=== PATIENT | male | born 1930 | race Caucasian/White ===

== ENCOUNTER 2018-05-08 10:01 | Emergency (ER) | payer MEDICARE, BC ==
[2018-05-08 10:43] VITALS: BP 175/78
--- NOTE | 2018-05-08 12:19 | EDM.PDOC ---
ED HPI GENERAL MEDICAL PROBLEM - General Chief Complaint: Upper Extremity Injury/Pain Stated Complaint: ELBOW PAIN Time Seen by Provider: 05/08/18 11:00 Source of Information: Reports: Patient History Limitations: Reports: No Limitations - History of Present Illness INITIAL COMMENTS - FREE TEXT/NARRATIVE: 88-year-old male arrives with a variety complaints, his main concern however is his right elbow. A year ago he had swelling and pain, responded to intra- articular steroids and did well until several weeks ago when he started having pain and swelling. It is now become tight and painful with movement and he wanted it checked. He's also had diarrhea off and on for the last year, and worsening bronchitis with the past 2 weeks. He thinks he's had low-grade fevers off-and-on, no significant shortness of breath, no nausea or vomiting. Associated Symptoms: Reports: Cough, Fever/Chills, Shortness of Breath. Denies : Chest Pain, Loss of Appetite, Malaise, Nausea/Vomiting, Weakness Right Arm Pain Score (Numeric/FACES): 10 - Related Data Allergies Allergy/AdvReac Type Severity Reaction Status Date / Time bee pollen Allergy Other Verified 07/09/16 08:00 pollen extracts Allergy Other Verified 07/09/16 08:00 Home Meds: Home Meds Omeprazole [Prilosec] 20 mg PO DAILY 06/01/13 [History] Warfarin [Coumadin] 5 mg PO ASDIRECTED 04/07/16 [History] EPINEPHrine [Epipen 2-Ceferino] 0.3 ml IM ASDIRECTED 07/07/16 [History] Fish Oil/Borage/Flax/Om3,6,9#1 [[place] 3-6-9 1,200 mg Softgel] 2,400 mg PO BID [History] Multivitamin [Multivitamins] 1 cap PO DAILY 07/07/16 [History] Triamcinolone Acetonide [Triamcinolone Acetonide 0.5%] 0.5 percent TOP ASDIRECTED 07/07/16 [History] Aspirin 325 mg PO DAILY 05/08/18 [History] Cholestyramine/Aspartame [Questran Light Powder] 05/08/18 [History] Quinapril HCl 20 mg PO BID 05/08/18 [History] Simethicone 125 mg PO Q6H PRN 05/08/18 [History] metFORMIN HCl [Metformin HCl] 1,000 mg PO BID 05/08/18 [History] Past Medical History HEENT History: Reports: Allergic Rhinitis, Hard of Hearing, Other (See Below) Other HEENT History: tinitis right ear Cardiovascular History: Reports: Hypertension Respiratory History: Reports: SOB Gastrointestinal History: Reports: Cholelithiasis, Colon Polyp, GERD Musculoskeletal History: Reports: Fracture, Osteoarthritis Neurological History: Reports: Concussion Endocrine/Metabolic History: Reports: Diabetes, Type II Oncologic (Cancer) History: Reports: Other (See Below) Other Oncologic History: skin cancer Dermatologic History: Reports: None - Infectious Disease History Infectious Disease History: Reports: Chicken Pox, Measles, Mumps - Past Surgical History Cardiovascular Surgical History: Reports: Aneurysm, Other (See Below) Respiratory Surgical History: Reports: None Male Surgical History: Reports: None Neurological Surgical History: Reports: None Musculoskeletal Surgical History: Reports: Knee Replacement Dermatological Surgical History: Reports: Skin Biopsy Social & Family History - Tobacco Use Smoking Status *Q: Never Smoker - Caffeine Use Caffeine Use: Reports: Coffee - Recreational Drug Use Recreational Drug Use: No Review of Systems - Review of Systems Review Of Systems: See Below Constitutional: Reports: Fever Eyes: Reports: No Symptoms Mouth/Throat: Reports: No Symptoms Respiratory: Reports: Shortness of Breath, Cough, Sputum Cardiovascular: Denies: Chest Pain GI/Abdominal: Reports: Diarrhea. Denies: Abdominal Pain Genitourinary: Reports: No Symptoms Musculoskeletal: Reports: Other (Right elbow pain, no other joint symptoms) Skin: Reports: No Symptoms Neurological: Denies: Headache ED EXAM, GENERAL - Physical Exam Exam: See Below Exam Limited By: No Limitations General Appearance: Alert, No Apparent Distress (Looks uncomfortable but not distressed) Eye Exam: Bilateral Eye: Normal Inspection Head: Atraumatic Respiratory/Chest: No Respiratory Distress, Lungs Clear Cardiovascular: Regular Rate, Rhythm GI/Abdominal: Soft, Non-Tender, Abnormal Bowel Sounds (Bowel sounds are hypoactive) Extremities: Other (Exam of the right elbow reveals fullness, effusion, and tenderness especially laterally. No redness or warmth) Skin Exam: Warm, Dry Course - Vital Signs Last Recorded V/S: Last Vital Signs Temp 97.5 F 05/08/18 10:43 Pulse 86 05/08/18 10:43 Resp 16 05/08/18 10:43 BP 175/78 H 05/08/18 10:43 Pulse Ox 97 05/08/18 10:43 - Orders/Labs/Meds Orders: Active Orders 24 hr Category Date Time Status Chest 2V [CR] Stat Exams 05/08/18 11:18 Taken Elbow Min 3V Rt [CR] Stat Exams 05/08/18 11:18 Taken Labs: Laboratory Tests 05/08/18 05/08/18 Range/Units 11:30 11:30 WBC 12.0 H (4.5-11.0) K/uL RBC 4.29 L (4.30-5.90) M/uL Hgb 11.8 L (12.0-15.0) g/dL Hct 36.6 L (40.0-54.0) % MCV 85 (80-98) fL MCH 28 (27-31) pg MCHC 32 (32-36) % Plt Count 298 (150-400) K/uL Neut % (Auto) 78 H (36-66) % Lymph % (Auto) 12 L (24-44) % [place] % (Auto) 10 H (2-6) % Eos % (Auto) 0 L (2-4) % Baso % (Auto) 0 (0-1) % Sodium 136 L (140-148) mmol/L Potassium 3.9 (3.6-5.2) mmol/L Chloride 99 L (100-108) mmol/L Carbon Dioxide 26 (21-32) mmol/L Anion Gap 14.9 H (5.0-14.0) mmol/L BUN 15 (7-18) mg/dL Creatinine 1.1 (0.8-1.3) mg/dL Est Cr Clr Drug Dosing 51.34 mL/min Estimated GFR (MDRD) > 60 (>60) Glucose 167 H (74-106) mg/dL Calcium 8.9 (8.5-10.1) mg/dL Total Bilirubin 0.5 (0.2-1.0) mg/dL AST 17 (15-37) U/L ALT 14 (12-78) U/L Alkaline Phosphatase 66 (46-116) U/L Total Protein 7.9 (6.4-8.2) g/dL Albumin 3.5 (3.4-5.0) g/dL Globulin 4.4 H (2.3-3.5) g/dL Albumin/Globulin Ratio 0.8 L (1.2-2.2) - Re-Assessments/Exams Free Text/Narrative Re-Assessment/Exam: 05/08/18 12:22 a two-view chest x-ray shows no infiltrate, the elbow x-ray shows significant advanced osteoarthritis but appears stable from one year ago. Patient was started on ciprofloxacin 500 mg twice daily for the next 10 days, given a sling for his right arm, and 10 hydrocodone for extra pain control. He was asked to recheck with orthopedics later this week for a possible aspiration of the elbow and or intra-articular steroid injection. Departure - Departure Time of Disposition: 12:36 Disposition: Home, Self-Care 01 Condition: Good Clinical Impression: Effusion of elbow joint, right, Bronchitis Diarrhea Qualifiers: Diarrhea type: unspecified type Qualified Code(s): R19.7 - Diarrhea, unspecified - Discharge Information Instructions: Reactive Arthritis Referrals: Fito Mai ENFORCEMENT MANAGER [Primary Care Provider] - Forms: ED Department Discharge Care Plan Goals: Take antibiotic twice daily, recheck with orthopedics later this week and wear sling for comfort. Use pain medications for extra pain control if needed. - My Orders Last 24 Hours: My Active Orders 05/08/18 11:18 Chest 2V [CR] Stat Elbow Min 3V Rt [CR] Stat - Assessment/Plan Last 24 Hours: My Active Orders 05/08/18 11:18 Chest 2V [CR] Stat Elbow Min 3V Rt [CR] Stat
--- NOTE | 2018-05-09 09:20 | CR ---
CHEST: 2 view CLINICAL HISTORY:Pain COMPARISON:2014 FINDINGS: Patient has had previous sternotomy. Heart size is normal. There are atherosclerotic saxena es in the aorta. No infiltrates are seen. There are no effusions. Impression: Previous sternotomy No acute cardiopulmonary process or significant change from prior study
--- NOTE | 2018-05-09 09:23 | CR ---
Elbow Min 3V Rt CLINICAL HISTORY: Pain and swelling FINDINGS: No acute fracture or dislocation is noted. The fat pads are displaced to the due to joint e ffusion. There are some periarticular ossific densities anteriorly some these may be loose bodies. Th ere is moderate periarticular spurring . There is a persistent stable lytic focus in the olecranon. 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 Impression: Joint fluid is likely joint effusion. Hemarthrosis is felt less likely Moderate osteoarthritic change with periarticular spurring. Probable loose bodies in the anterior syn ovial space Stable cystic focus in the proximal ulna
== END 2018-05-08 12:36 | disposition home or self-care (01) ==
LOC: JP.ED 10:01
DX: M25.421 Effusion, right elbow (principal); J40 Bronchitis, not specified as acute or chronic; I10 Essential (primary) hypertension; E11.9 Type 2 diabetes mellitus without complications; Z79.01 Long term (current) use of anticoagulants; Z79.84 Long term (current) use of oral hypoglycemic drugs; Z79.899 Other long term (current) drug therapy; Z91.030 Bee allergy status; Z91.09 Other allergy status, other than to drugs and biological substances; Z79.82 Long term (current) use of aspirin
CPT/HCPCS: 36415; 71046; 71046-26; 73080-26-RT; 73080-RT; 80053; 85025; 99283; 99284

== ENCOUNTER 2018-12-27 09:56 | Emergency (ER) | payer MEDICARE ==
[2018-12-27 10:23] VITALS: BP 204/91
[2018-12-27] MEDS ORDERED: Acetaminophen/oxyCODONE 325-5 MG Tab PO ONE (10:31)
--- NOTE | 2018-12-27 10:37 | EDM.PDOC ---
ED HPI GENERAL MEDICAL PROBLEM - General Chief Complaint: Upper Extremity Injury/Pain Stated Complaint: LEFT ELBOW PAIN Time Seen by Provider: 12/27/18 10:20 Source of Information: Reports: Patient, Old Records History Limitations: Reports: No Limitations - History of Present Illness INITIAL COMMENTS - FREE TEXT/NARRATIVE: 88 yo male presents with L elbow pain and decreased ROM that began last evening. He denies any injury. He had a similar problem in the past with the R elbow and his primary gave him a shot of "cortisone". He did not take any OTC meds for this and did not attempt to get in with his primary before coming to the ER today. He denies a hx of gout. 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 HELPER: Reports: Other (see below) (none) - Related Data Allergies Allergy/AdvReac Type Severity Reaction Status Date / Time bee pollen Allergy Other Verified 12/27/18 10:22 pollen extracts Allergy Other Verified 12/27/18 10:22 Home Meds: Home Meds Omeprazole [Prilosec] 20 mg PO DAILY 06/01/13 [History] Warfarin [Coumadin] 5 mg PO ASDIRECTED 04/07/16 [History] EPINEPHrine [Epipen 2-Ceferino] 0.3 ml IM ASDIRECTED 07/07/16 [History] Fish Oil/Borage/Flax/Om3,6,9#1 [[place] 3-6-9 1,200 mg Softgel] 2,400 mg PO BID [History] Multivitamin [Multivitamins] 1 cap PO DAILY 07/07/16 [History] Quinapril HCl 20 mg PO BID 05/08/18 [History] Acetaminophen/oxyCODONE [Percocet 325-5 MG] 1 each PO Q4H PRN #20 tab 12/27/18 [ Rx] Insulin Degludec [Tresiba] 36 unit SQ DAILY 12/27/18 [History] Past Medical History HEENT History: Reports: Allergic Rhinitis, Hard of Hearing, Other (See Below) Other HEENT History: tinitis right ear Cardiovascular History: Reports: Hypertension Respiratory History: Reports: SOB Gastrointestinal History: Reports: Cholelithiasis, Colon Polyp, GERD Musculoskeletal History: Reports: Fracture, Osteoarthritis Neurological History: Reports: Concussion Endocrine/Metabolic History: Reports: Diabetes, Type II Oncologic (Cancer) History: Reports: Other (See Below) Other Oncologic History: skin cancer Dermatologic History: Reports: None - Infectious Disease History Infectious Disease History: Reports: Chicken Pox, Measles, Mumps - Past Surgical History Cardiovascular Surgical History: Reports: Aneurysm, Other (See Below) Respiratory Surgical History: Reports: None Male Surgical History: Reports: None Neurological Surgical History: Reports: None Musculoskeletal Surgical History: Reports: Knee Replacement Dermatological Surgical History: Reports: Skin Biopsy Social & Family History - Caffeine Use Caffeine Use: Reports: Coffee Review of Systems - Review of Systems Review Of Systems: See Below Constitutional: Reports: No Symptoms Musculoskeletal: Reports: Joint Pain (L elbow) Skin: Reports: No Symptoms Neurological: Reports: No Symptoms Psychiatric: Reports: No Symptoms ED EXAM, GENERAL - Physical Exam Exam: See Below Exam Limited By: No Limitations General Appearance: Alert, WD/WN, No Apparent Distress Extremities: Pedal Edema (L elbow slightly swollen.), Joint Swelling (L elbow slightly swollen), Limited Range of Motion (ROM decreased to the L elbow. ), Increased Warmth (very subtle increase in warmth noted.). No: Normal Inspection , Normal Range of Motion, Non-Tender, No Pedal Edema, Mottled, Pallor, Redness Neurological: Alert, Oriented, CN II-XII Intact, Normal Cognition, No Motor/ Sensory Deficits Psychiatric: Normal Affect, Normal Mood Skin Exam: Warm, Dry, Intact, Normal Color, No Rash Lymphatic: No Adenopathy Course - Vital Signs Text/Narrative:: Feeling better after Percocet, appt made with orthopedics for 1 week from today. Sling applied. Last Recorded V/S: Last Vital Signs Temp 36.3 C 12/27/18 10:30 Pulse 94 12/27/18 10:30 Resp 16 12/27/18 10:30 BP 204/91 H 12/27/18 10:30 Pulse Ox 97 12/27/18 10:30 - Orders/Labs/Meds Meds: Medications Discontinued Medications Generic Name Dose Route Start Last Admin Trade Name Freq PRN Reason Stop Dose Admin Oxycodone/Acetaminophen 1 tab 05/21/19 10:31 12/27/18 10:46 Percocet 325-5 Mg PO 12/27/18 10:32 1 tab ONETIME ONE Administration Departure - Departure Time of Disposition: 11:15 Disposition: Home, Self-Care 01 Condition: Fair Clinical Impression: Elbow pain, left - Discharge Information *PRESCRIPTION DRUG MONITORING PROGRAM REVIEWED*: No *COPY OF PRESCRIPTION DRUG MONITORING REPORT IN PATIENT ANGELIQUE: No Instructions: Joint Pain, [id number] Referrals: Fito Mai NP [Primary Care Provider] - Forms: ED Department Discharge Additional Instructions: Wear sling for support. Take either acetaminophen OR Percocet as needed for pain relief. Follow up with orthopedics here next Wednesday. Return here or see yourt doctor if getting a lot worse in the interim.
== END 2018-12-27 11:35 | disposition home or self-care (01) ==
LOC: JP.ED 09:56
DX: M25.522 Pain in left elbow (principal); I10 Essential (primary) hypertension; K21.9 Gastro-esophageal reflux disease without esophagitis; E11.9 Type 2 diabetes mellitus without complications; Z79.4 Long term (current) use of insulin; Z79.899 Other long term (current) drug therapy; Z91.030 Bee allergy status; Z88.8 Allergy status to other drugs, medicaments and biological substances
CPT/HCPCS: 99283; A9270

== ENCOUNTER 2019-09-08 16:32 | Emergency (ER) | payer MEDICARE ==
--- NOTE | 2019-09-08 17:03 | EDM.PDOC ---
ED HPI GENERAL MEDICAL PROBLEM - General Chief Complaint: General Stated Complaint: MEDICAL [facility]IA [facility] Time Seen by Provider: 09/08/19 16:40 Source of Information: Reports: Patient, EMS, Family History Limitations: Reports: No Limitations - History of Present Illness INITIAL COMMENTS - FREE TEXT/NARRATIVE: 89-year-old male was brought in by ambulance after falling at home and was unable to get up. He has been getting episodes of dizziness, and he thinks he may have had some dizziness prior to falling but he did not faint. He did not hurt himself, however he was unable to get up so his called the ambulance. He thinks he was unable to get up because he was so weak. He is not complaining of pain, shortness of breath, he has chronic diarrhea but no new nausea or vomiting, fevers or chills or cough. He is in chronic atrial fibrillation, is on Coumadin and his Coumadin has been held the last 2 days because of a high INR at the clinic earlier this week. He denies nosebleeds, dark stools, or significant bruising. Onset: Sudden (1 hour ago) Associated Symptoms: Reports: Confusion, Malaise, Weakness, Other (Chronic loose stools) - Related Data Allergies Allergy/AdvReac Type Severity Reaction Status Date / Time bee pollen Allergy Other Verified 09/08/19 16:35 pollen extracts Allergy Other Verified 09/08/19 16:35 Home Meds: Home Meds Omeprazole [Prilosec] 20 mg PO DAILY 06/01/13 [History] Warfarin [Coumadin] 5 mg PO ASDIRECTED 04/07/16 [History] EPINEPHrine [Epipen 2-Ceferino] 0.3 ml IM ASDIRECTED 07/07/16 [History] Fish Oil/Borage/Flax/Om3,6,9 1 [[place] 3-6-9 1,200 mg Softgel] 2,400 mg PO BID [History] Multivitamin [Multivitamins] 1 cap PO DAILY 07/07/16 [History] Quinapril HCl 20 mg PO BID 05/08/18 [History] Insulin NPH Hum/Reg Insulin Hm [Novolin 70-30 Flexpen] 36 units SUBCUT BID 09/08 [History] atorvaSTATin [Lipitor] 10 mg PO BEDTIME 09/08/19 [History] metFORMIN HCl [Metformin HCl] 1,000 mg PO BID 09/08/19 [History] Past Medical History HEENT History: Reports: Allergic Rhinitis, Hard of Hearing, Other (See Below) Other HEENT History: tinitis right ear Cardiovascular History: Reports: Hypertension Respiratory History: Reports: SOB Gastrointestinal History: Reports: Cholelithiasis, Colon Polyp, GERD Musculoskeletal History: Reports: Fracture, Osteoarthritis Neurological History: Reports: Concussion Endocrine/Metabolic History: Reports: Diabetes, Type II Oncologic (Cancer) History: Reports: Other (See Below) Other Oncologic History: skin cancer Dermatologic History: Reports: None - Infectious Disease History Infectious Disease History: Reports: Chicken Pox, Measles, Mumps - Past Surgical History Cardiovascular Surgical History: Reports: Aneurysm Musculoskeletal Surgical History: Reports: Knee Replacement Dermatological Surgical History: Reports: Skin Biopsy Social & Family History - Tobacco Use Smoking Status *Q: Former Smoker Used Tobacco, but Quit: Yes Month/Year Tobacco Last Used: 0 - Caffeine Use Caffeine Use: Reports: Coffee Other Caffeine Use: 1 cup per day - Recreational Drug Use Recreational Drug Use: No ED ROS GENERAL - Review of Systems Review Of Systems: See Below Constitutional: Denies: Fever, Chills HEENT: Reports: Other (Very hard of hearing) Respiratory: Denies: Shortness of Breath, Cough Cardiovascular: Denies: Chest Pain, Palpitations Endocrine: Denies: Fatigue GI/Abdominal: Reports: Diarrhea (Chronic, loose but not dark). Denies: Abdominal Pain, Nausea, Vomiting : Reports: No Symptoms Musculoskeletal: Reports: Other (Patient has chronic lower extremity edema on the right leg) Skin: Reports: Other (Small healing abrasions on the top of the scalp and left occipital scalp. No significant bruising of the extremities) Neurological: Reports: Confusion (Mild confusion) Psychiatric: Denies: Agitation, Anxiety ED EXAM, GENERAL - Physical Exam Exam: See Below Exam Limited By: No Limitations General Appearance: Alert, No Apparent Distress Eye Exam: Bilateral Eye: EOMI Head: Other (Healing small abrasion on the top of the scalp and the left occipital scalp, no new injury seen) Neck: Supple, Non-Tender Respiratory/Chest: Decreased Breath Sounds (Some decreased breath sounds in the bases but otherwise clear) Cardiovascular: Irregularly Irregular. No: Tachycardia GI/Abdominal: Soft, Non-Tender, Other (Ventral hernias present, nontender) Back Exam: No: Vertebral Tenderness Extremities: Other (1+ edema of the right lower extremity, none on the left) Neurological: Alert, Oriented, No Motor/Sensory Deficits (Grasp strength and lower extremity strength along with facial muscles had no significant objective asymmetry.), Slow to Respond Psychiatric: Flat Affect Skin Exam: Warm, Dry Course - Vital Signs Last Recorded V/S: Last Vital Signs Temp 98.4 F 09/08/19 16:42 Pulse 75 09/08/19 17:26 Resp 24 H 09/08/19 17:48 BP 188/74 H 09/08/19 17:48 Pulse Ox 92 L 09/08/19 17:48 - Orders/Labs/Meds Labs: Laboratory Tests 09/08/19 09/08/19 09/08/19 Range/Units 17:05 17:07 17:07 WBC 6.4 (4.5-11.0) K/uL RBC 4.04 L (4.30-5.90) M/uL Hgb 10.9 L (12.0-15.0) g/dL Hct 35.5 L (40.0-54.0) % MCV 88 (80-98) fL MCH 27 (27-31) pg MCHC 31 L (32-36) % Plt Count 247 (150-400) K/uL Neut % (Auto) 67 H (36-66) % Lymph % (Auto) 22 L (24-44) % [place] % (Auto) 9 H (2-6) % Eos % (Auto) 2 (2-4) % Baso % (Auto) 0 (0-1) % PT 26.9 H (9.5-12.0) sec INR 2.63 H D (0.80-1.20) Sodium 142 (140-148) mmol/L Potassium 3.9 (3.6-5.2) mmol/L Chloride 105 (100-108) mmol/L Carbon Dioxide 24 (21-32) mmol/L Anion Gap 12.6 (5.0-14.0) mmol/L BUN 12 (7-18) mg/dL Creatinine 1.1 (0.8-1.3) mg/dL Est Cr Clr Drug Dosing TNP Estimated GFR (MDRD) > 60 (>60) Glucose 227 H (74-106) mg/dL Calcium 7.9 L (8.5-10.1) mg/dL Total Bilirubin 0.7 (0.2-1.0) mg/dL AST 18 (15-37) U/L ALT 20 (12-78) U/L Alkaline Phosphatase 73 (46-116) U/L Total Protein 6.8 (6.4-8.2) g/dL Albumin 3.0 L (3.4-5.0) g/dL Globulin 3.8 H (2.3-3.5) g/dL Albumin/Globulin Ratio 0.8 L (1.2-2.2) Meds: Medications Discontinued Medications Generic Name Dose Route Start Last Admin Trade Name Freq PRN Reason Stop Dose Admin Factor IX (Pha) 5,000 unit 09/08/19 17:39 09/08/19 18:20 Kcentra IVPUSH 09/08/19 17:40 Not Given .BOLUS ONE Factor IX (Pha) 2,500 unit 09/08/19 17:58 09/08/19 18:05 Kcentra IVPUSH 09/08/19 17:59 2,500 unit .BOLUS ONE Administration Labetalol HCl 10 mg 09/08/19 17:33 09/08/19 17:39 Normodyne IVPUSH 09/08/19 17:34 10 mg ONETIME ONE Administration Protocol - Re-Assessments/Exams Free Text/Narrative Re-Assessment/Exam: 09/08/19 17:10 Clinic records were checked, his INR was "high" earlier this week so his Coumadin was held yesterday and today. According to his son the abrasions on his scalp are from a fall in [facility] 2 days ago when he hit his head on a cart. Apparently he was not hurt at the time. His son thinks he is a little "off" with his mild confusion and his hesitancy when speaking. A CT of the head will be ordered as well as a CBC and CMP. Cardiac monitoring will be continued. He is in atrial fibrillation with good rate control. 09/08/19 17:50 Impression : 1. Acute intraparenchymal hemorrhage of the parasagittal left frontal lobe with extension into the adjacent subdural space along the falx. Associated mass effect and near complete effacement of the anterior horn of lateral ventricle. 2. Small mixed density subdural hematoma adjacent to the right frontal lobe is likely subacute to chronic 3. Basilar cisterns remain patent. 4. Moderate to large volume loss. 5. No acute infarct. 6. Findings discussed with Dr. Coppola at 5:[address] findings are above. INR was ordered, systolic blood pressure was 188 so 10 mg of IV labetalol was given. 5000 units of Kcentra was ordered. I discussed his condition with neurosurgery in [place], he was accepted on an urgent transfer , unfortunately a flight was not available due to weather so he was sent by urgent ground. 09/08/19 17:54 At time of departure INR was still pending. This will be sent to [place] when available. Prior to discharge patient's INR returned 2.6, so the Kcentra dose was decreased to 2500 units. It was recommended by neurosurgery to give the max dose allowed depending on the INR range. Patient was then transferred urgently by ground. Departure - Departure Time of Disposition: 18:34 Disposition: DC/Tfer to Other Clinical Impression: Cerebral hemorrhage, acute Hypertension Qualifiers: Hypertension type: essential hypertension Qualified Code(s): I10 - Essential ( primary) hypertension - Discharge Information Referrals: PCP,None [Primary Care Provider] - Forms: ED Department Discharge Care Plan Goals: Patient was accepted by Dr. Carballo, neurosurgery at [facility] at 5:35 PM. EMS arrived for transfer at 5:45 PM, after 5000 units of Kcentra and IV labetalol patient was urgently transferred for neurosurgical evaluation and treatment at [facility] in [place]. Sepsis Event Note - Evaluation Sepsis Screening Result: No Definite Risk - Focused Exam Date Exam was Performed: 09/09/19 Time Exam was Performed: 07:11
[2019-09-08] MEDS ORDERED: Labetalol 20 MG/4 ML Syringe IVPUSH ONE (17:33)
[2019-09-08 17:35] VITALS: PULSE 75
[2019-09-08] MEDS ORDERED: Factor IX Complex Human 500 UNIT VIAL IVPUSH ONE ×2 (17:39→17:58)
[2019-09-08 17:49] VITALS: BP 188/74
--- NOTE | 2019-09-08 17:50 | CRLCT ---
INDICATION: Fall, dizziness confusion. COMPARISON: 10/02/2015. TECHNIQUE: Noncontrast CT of the head. FINDINGS: Compared to previous exam, there is intraparenchymal hemorrhage of the parasagittal left frontal lobe extending into the subdural space adjacent to the falx measuring approximately 2.9 x 3 x 3.5 cm. Associated mass effect and near complete effacement of the anterior horn of left lateral ventricle. Hemorrhage also extends into the mid body of the corpus callosum. No evidence of intraventricular extension of blood. Small mixed density subdural hematoma adjacent to the right frontal lobe measuring approximately 5 mm in maximal thickness (series 5, image 31). Finding likely represents a more subacute to chronic subdural hematoma. Moderate generalized volume loss. No midline shift. Basilar cisterns are patent. Normal calvarium and skull base. Mucosal thickening and fluid of the right maxillary sinus. Remaining visualized paranasal sinuses and mastoid air cells are clear. Partially visualized orbits are unremarkable. Impression : 1. Acute intraparenchymal hemorrhage of the parasagittal left frontal lobe with extension into the adjacent subdural space along the falx. Associated mass effect and near complete effacement of the anterior horn of lateral ventricle. 2. Small mixed density subdural hematoma adjacent to the right frontal lobe is likely subacute to chronic 3. Basilar cisterns remain patent. 4. Moderate to large volume loss. 5. No acute infarct. 6. Findings discussed with Dr. Coppola at 5:45 p.m. Dictated by Migue Sánchez MD @ 09/08/2019 5:48:19 PM Please note that all CT scans at this facility use dose modulation, iterative reconstruction, and/or weight-based dosing when appropriate to reduce radiation dose to as low as reasonably achievable. Dictated by: Migue Sánchez MD @ 09/08/2019 17:48:25 (Electronically Signed)
== END 2019-09-08 18:18 | disposition other institution (70) ==
LOC: JP.ED 16:32
DX: I61.9 Nontraumatic intracerebral hemorrhage, unspecified (principal); I10 Essential (primary) hypertension; K21.9 Gastro-esophageal reflux disease without esophagitis; E11.9 Type 2 diabetes mellitus without complications; Z91.048 Other nonmedicinal substance allergy status; Z91.030 Bee allergy status; Z79.899 Other long term (current) drug therapy; Z79.84 Long term (current) use of oral hypoglycemic drugs; Z85.828 Personal history of other malignant neoplasm of skin; Z87.891 Personal history of nicotine dependence
CPT/HCPCS: 36415; 70450; 80053; 85025; 85610; 96374; 96375; 99285; C9132; J3490

== ENCOUNTER 2019-10-30 05:07 | Inpatient (IN) | payer MEDICARE ==
[2019-10-30] MEDS ORDERED: Lidocaine 2% Jelly 10 ML Urojet MUCMEM ONE (05:52)
[2019-10-30] MEDS ORDERED: Sodium Chloride 0.9% 10 ML Syringe FLUSH PRN (06:16)
--- NOTE | 2019-10-30 06:54 | EDM.PDOC ---
<Natali Renae - Last Filed: 10/30/19 07:11> ED HPI GENERAL MEDICAL PROBLEM - General Chief Complaint: Genitourinary Problem Stated Complaint: MEDICAL VIA [facility] Time Seen by Provider: 10/30/19 05:20 Source of Information: Reports: Patient, EMS, Family History Limitations: Reports: No Limitations - History of Present Illness INITIAL COMMENTS - FREE TEXT/NARRATIVE: pt was sent to the er because he was not able to void. He has been a little fluid overloaded and extra lasix was given to the pt . He was given lasix 60 mg po instead of 20 mg. He has been noted to have alot of swelling in his legs. 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 MAN: Reports: Other (see below) Other Treatments MACHINE CLOTHING MAN: plain mask - Related Data Allergies Allergy/AdvReac Type Severity Reaction Status Date / Time bee pollen Allergy Other Verified 10/30/19 05:29 pollen extracts Allergy Other Verified 10/30/19 05:29 Home Meds: Home Meds Omeprazole [Prilosec] 20 mg PO DAILY 06/01/13 [History] Quinapril HCl 20 mg PO BID 05/08/18 [History] atorvaSTATin [Lipitor] 10 mg PO BEDTIME 09/08/19 [History] metFORMIN HCl [Metformin HCl] 1,000 mg PO BIDAC 09/08/19 [History] Acetaminophen [Tylenol] 650 mg PO TID 10/30/19 [History] Furosemide [Lasix] 20 mg PO DAILY 10/30/19 [History] Furosemide [Lasix] 60 mg PO ASDIRECTED 10/30/19 [History] Gabapentin [Neurontin] 100 mg PO TID 10/30/19 [History] Insulin Detemir [Levemir Flextouch] 15 units SQ BEDTIME 10/30/19 [History] Metoprolol Tartrate 50 mg PO BID 10/30/19 [History] Multivit with Iron,Minerals [Complete Senior] 1 each PO DAILY 10/30/19 [History] [place]cadia-3S/DHA/Epa/Fish Oil [Fish Oil Arcadia-3 Softgel] 1 cap PO BID 10/30/19 [ History] Potassium Chloride 20 meq PO ASDIRECTED 10/30/19 [History] Tamsulosin HCl [Flomax] 0.4 mg PO DAILY 10/30/19 [History] amLODIPine Besylate [Amlodipine Besylate] 10 mg PO DAILY 10/30/19 [History] cloNIDine [Catapres] 0.2 mg PO DAILY 10/30/19 [History] Past Medical History HEENT History: Reports: Allergic Rhinitis, Hard of Hearing, Other (See Below) Other HEENT History: tinitis right ear Cardiovascular History: Reports: Heart Valve Replacement, Hypertension Respiratory History: Reports: SOB Gastrointestinal History: Reports: Cholelithiasis, Colon Polyp, GERD Genitourinary History: Reports: Retention, Urinary Musculoskeletal History: Reports: Fracture, Osteoarthritis Neurological History: Reports: Concussion Endocrine/Metabolic History: Reports: Diabetes, Type II Oncologic (Cancer) History: Reports: Other (See Below) Other Oncologic History: skin cancer Dermatologic History: Reports: None - Infectious Disease History Infectious Disease History: Reports: Chicken Pox - Past Surgical History Cardiovascular Surgical History: Reports: Aneurysm Male Surgical History: Reports: None Musculoskeletal Surgical History: Reports: Knee Replacement Dermatological Surgical History: Reports: Skin Biopsy Social & Family History - Tobacco Use Smoking Status *Q: Unknown Ever Smoked Second Hand Smoke Exposure: No - Caffeine Use Caffeine Use: Reports: None, Coffee Other Caffeine Use: 1 cup per day - Recreational Drug Use Recreational Drug Use: No ED ROS GENERAL - Review of Systems Review Of Systems: See Below Constitutional: Reports: No Symptoms HEENT: Reports: No Symptoms Respiratory: Reports: Shortness of Breath, Other (pt does have good o2 sats. ) Cardiovascular: Reports: Edema Endocrine: Reports: No Symptoms GI/Abdominal: Reports: No Symptoms : Reports: No Symptoms Musculoskeletal: Reports: No Symptoms Skin: Reports: No Symptoms Neurological: Reports: Confusion Psychiatric: Reports: No Symptoms ED EXAM, RENAL/ - Physical Exam Exam: See Below Text/Narrative:: pt arrived because is having difficulty voiding. He was given a larger dose of lasix yesterday. He has been sob. He states he feels swollen in general. Exam Limited By: Other (pt is mildly confused.) General Appearance: Alert, Moderate Distress, Other (pupils are equal and reactive. ) Ears: Normal TMs Nose: Normal Inspection Throat/Mouth: Normal Inspection Head: Atraumatic Neck: Other ( vessels are prominent. ) Respiratory/Chest: No Respiratory Distress, Other (pt has good o2 sats. ) Cardiovascular: Regular Rate, Rhythm GI/Abdominal: Other (pt has edema on the abdoman. ) (Male) Exam: Other (pt has been haviong difficulty voiding. ) Rectal (Males) Exam: Deferred Back Exam: Normal Inspection Extremities: Other (pt has anasara) Neurological: Alert Psychiatric: Anxious Course - Vital Signs Last Recorded V/S: Last Vital Signs Temp 98.2 F 10/30/19 11:38 Pulse 75 10/30/19 11:38 Resp 20 10/30/19 11:38 BP 90/61 10/30/19 11:40 Pulse Ox 95 10/30/19 11:38 - Orders/Labs/Meds Orders: Active Orders 24 hr Category Date Time Status Moser Catheter Insertion [Insert Urinary Catheter] [OM. Care 10/30/19 06:30 Ordered PC] Q24H Urinary Catheter Assessment [RC] ASDIRECTED Care 10/30/19 06:16 Active CULTURE URINE [RM] Stat Lab 10/30/19 06:52 Received Sodium Chloride 0.9% [Saline Flush] Med 10/30/19 06:16 Active 10 ml FLUSH ASDIRECTED PRN Saline Lock Insert [OM.PC] Routine Oth 10/30/19 06:16 Ordered EKG 12 Lead [EK] Routine Ther 10/30/19 07:03 Stop Req Medication Orders Acetaminophen (Tylenol) 650 mg PO TID JENELLE Acetaminophen (Tylenol) 650 mg PO Q4H PRN PRN Reason: Pain (Mild 1-3)/fever Albuterol (Proventil Neb Soln) 2.5 mg NEB Q4H PRN PRN Reason: Shortness Of Breath/wheezing Atorvastatin Calcium (Lipitor) 10 mg PO BEDTIME JENELLE Enoxaparin Sodium (Lovenox) 40 mg SUBCUT DAILY JENELLE Gabapentin (Neurontin) 100 mg PO TID [facility] Insulin Glargine (Lantus Solostar) 10 units SUBCUT BEDTIME JENELLE Lorazepam (Ativan) 0.5 mg IVPUSH Q4H PRN PRN Reason: Nausea/Vomiting Magnesium Hydroxide (Milk Of Magnesia) 30 ml PO Q12H PRN PRN Reason: Constipation Melatonin (Melatonin) 9 mg PO BEDTIME [facility] Metoprolol Tartrate (Lopressor) 50 mg PO BID [facility] Multivitamins/Minerals (Thera M Plus) 1 tab PO DAILY [facility] Ondansetron HCl (Zofran Odt) 4 mg PO Q6H PRN PRN Reason: Nausea able to take PO Ondansetron HCl (Zofran) 4 mg IV Q6H PRN PRN Reason: Nausea/Vomiting Pantoprazole Sodium (Protonix) 40 mg PO ACBREAKFAST JENELLE Senna/Docusate Sodium (Senna Plus) 1 tab PO BID PRN PRN Reason: Constipation Sodium Chloride (Saline Flush) 10 ml FLUSH ASDIRECTED PRN PRN Reason: Keep Vein Open Last Admin: 10/30/19 07:12 Dose: 10 ml Tamsulosin HCl (Flomax) 0.4 mg PO DAILY JENELLE Labs: Laboratory Tests 10/30/19 10/30/19 10/30/19 Range/Units 06:15 06:24 06:24 WBC 7.4 (4.5-11.0) K/uL RBC 3.31 L (4.30-5.90) M/uL Hgb 8.8 L D (12.0-15.0) g/dL Hct 29.2 L (40.0-54.0) % MCV 88 (80-98) fL MCH 27 (27-31) pg MCHC 30 L (32-36) % Plt Count 241 (150-400) K/uL Neut % (Auto) 63 (36-66) % Lymph % (Auto) 22 L (24-44) % [place] % (Auto) 12 H (2-6) % Eos % (Auto) 3 (2-4) % Baso % (Auto) 0 (0-1) % Sodium 138 L (140-148) mmol/L Potassium 5.7 H (3.6-5.2) mmol/L Chloride 105 (100-108) mmol/L Carbon Dioxide 23 (21-32) mmol/L Anion Gap 15.7 H (5.0-14.0) mmol/L BUN 51 H D (7-18) mg/dL Creatinine 2.7 H D (0.8-1.3) mg/dL Est Cr Clr Drug Dosing 20.53 mL/min Estimated GFR (MDRD) 22 L (>60) Glucose 67 L (74-106) mg/dL Calcium 7.9 L (8.5-10.1) mg/dL Total Bilirubin 0.5 (0.2-1.0) mg/dL AST 127 H D (15-37) U/L ALT 103 H (12-78) U/L Alkaline Phosphatase 71 (46-116) U/L NT-Pro-B Natriuret Pep 4209 H (5-450) pg/mL Total Protein 6.3 L (6.4-8.2) g/dL Albumin 2.8 L (3.4-5.0) g/dL Globulin 3.5 (2.3-3.5) g/dL Albumin/Globulin Ratio 0.8 L (1.2-2.2) Urine Color Yellow (YELLOW) Urine Appearance Clear (CLEAR) Urine pH 5.0 (5.0-8.0) Ur Specific Barnard >= 1.030 (1.008-1.030) Urine Protein 30 H (NEGATIVE) mg/dL Urine Glucose (UA) Negative (NEGATIVE) mg/dL Urine Ketones Trace H (NEGATIVE) mg/dL Urine Occult Blood Trace-intact H (NEGATIVE) Urine Nitrite Negative (NEGATIVE) Urine Bilirubin Small H (NEGATIVE) Urine Urobilinogen 0.2 (0.2-1.0) EU/dL Ur Leukocyte Esterase Trace H (NEGATIVE) Urine RBC 0-5 (0-5) Urine WBC 5-10 H (0-5) Ur Epithelial Cells Not seen Amorphous Sediment Moderate Urine Bacteria Rare Urine Mucus Not seen Meds: Medications Generic Name Dose Route Start Last Admin Trade Name Freq PRN Reason Stop Dose Admin Acetaminophen 650 mg 10/30/19 14:00 Tylenol PO TID [facility] Acetaminophen 650 mg 10/30/19 11:10 Tylenol PO Q4H PRN Pain (Mild 1-3)/fever Albuterol 2.5 mg 10/30/19 11:10 Proventil Neb Soln NEB Q4H PRN Shortness Of Breath/wheezing Atorvastatin Calcium 10 mg 10/30/19 21:00 Lipitor PO BEDTIME [facility] Enoxaparin Sodium 40 mg 10/30/19 12:00 Lovenox SUBCUT DAILY [facility] Gabapentin 100 mg 10/30/19 14:00 Neurontin PO TID [facility] Insulin Glargine 10 units 10/30/19 21:00 Lantus Solostar SUBCUT BEDTIME [facility] Lorazepam 0.5 mg 10/30/19 11:10 Ativan IVPUSH Q4H PRN Nausea/Vomiting Magnesium Hydroxide 30 ml 10/30/19 11:10 Milk Of Magnesia PO Q12H PRN Constipation Melatonin 9 mg 10/30/19 21:00 Melatonin PO BEDTIME [facility] Metoprolol Tartrate 50 mg 10/30/19 21:00 Lopressor PO BID [facility] Multivitamins/Minerals 1 tab 10/31/19 09:00 Thera M Plus PO DAILY JENELLE Ondansetron HCl 4 mg 10/30/19 11:10 Zofran Odt PO Q6H PRN Nausea able to take PO Ondansetron HCl 4 mg 10/30/19 11:10 Zofran IV Q6H PRN Nausea/Vomiting Pantoprazole Sodium 40 mg 10/31/19 07:30 Protonix PO ACBREAKFAST JENELLE Senna/Docusate Sodium 1 tab 10/30/19 11:10 Senna Plus PO BID PRN Constipation Sodium Chloride 10 ml 10/30/19 06:16 10/30/19 07:12 Saline Flush FLUSH 10 ml ASDIRECTED PRN Administration Keep Vein Open Tamsulosin HCl 0.4 mg 10/31/19 09:00 Flomax PO DAILY JENELLE Discontinued Medications Generic Name Dose Route Start Last Admin Trade Name Freq PRN Reason Stop Dose Admin Hydrocodone Bitart/Acetaminophen 1 tab 10/30/19 08:15 10/30/19 08:19 [place] 325-10 Mg PO 10/30/19 08:16 1 tab ONETIME ONE Administration Furosemide 60 mg 10/30/19 06:55 10/30/19 07:12 Lasix IVPUSH 10/30/19 06:56 60 mg ONETIME ONE Administration Hydromorphone HCl 0.5 mg 10/30/19 07:22 10/30/19 07:39 Dilaudid IVPUSH 10/30/19 07:23 0.5 mg ONETIME ONE Administration Lidocaine HCl 10 ml 10/30/19 05:52 10/30/19 05:57 Xylocaine 2% Jelly MUCMEM 10/30/19 05:53 10 ml ONETIME ONE Administration - Re-Assessments/Exams Free Text/Narrative Re-Assessment/Exam: 10/30/19 07:11 pt has a marked bnp which is elevated. He has generalized edema. He was having difficulty voiding this am. He has alot of swelling in the groin, legs and over the abdoman. His renal funtion shows a creatnine of 2.7. He has o2 sats that are good. A moser was inserted. chest xray does not show effusions. His hg was found to be 8. Departure - Departure Time of Disposition: 07:13 Disposition: Admitted As Inpatient 68 Condition: Fair Clinical Impression: Fluid overload, Anemia, Renal insufficiency - Discharge Information Sepsis Event Note - Evaluation Sepsis Screening Result: No Definite Risk - Focused Exam Vital Signs: Vital Signs Temp Pulse Resp BP Pulse Ox 10/30/19 10:37 100 16 100/63 97 10/30/19 07:20 114 H 16 97/64 98 10/30/19 06:45 78 14 115/76 98 10/30/19 05:20 97.3 F 106 H 18 106/62 98 Date Exam was Performed: 10/30/19 Time Exam was Performed: 07:11 <Edilberto Coppola - Last Filed: 10/30/19 11:50> Course - Re-Assessments/Exams Free Text/Narrative Re-Assessment/Exam: 10/30/19 07:58 Patient care turned over from Dr. Renae pending admission. Moser was assessed with flushing and drained appropriately so it is in place and functioning. With his kidney function and hemoglobin significantly different from just 2 months ago, I did asked the family and the patient how aggressively they would like treatment and they wanted to avoid any transfer. Case will be discussed with the hospitalist service for possible admission. Departure - Departure Time of Disposition: 11:26 Sepsis Event Note - Focused Exam Date Exam was Performed: 10/30/19 Time Exam was Performed: 11:50
[2019-10-30] MEDS ORDERED: Furosemide 40 MG/4 ML VIAL IVPUSH ONE (06:55)
[2019-10-30] MEDS ORDERED: HYDROmorphone 0.5 MG/0.5 ML Syringe IVPUSH ONE (07:22)
[2019-10-30] MEDS ORDERED: Acetaminophen/HYDROcodone 325-10 MG Tab PO ONE (08:15)
--- NOTE | 2019-10-30 09:25 | CR ---
CHEST: Portable 10/30/2019 at 06 35 CLINICAL HISTORY:SOB COMPARISON:2018 FINDINGS: Heart is enlarged. Patient has had previous sternotomy. Pulmonary vascularity is normal. There are atherosclerotic changes in the aorta. Impression: Cardiomegaly No acute cardiopulmonary process.
--- NOTE | 2019-10-30 10:57 | PCM.HP.2 ---
H&P History of Present Illness - General Date of Service: 10/30/19 Admit Problem/Dx: Admission Diagnosis/Problem Admission Diagnosis/Problem CHF, Congestive heart failure Source of Information: Patient, Family, Provider History Limitations: Reports: Altered Mental Status (confusion) - History of Present Illness Initial Comments - Free Text/Narative: CC: swelling HPI: Luis presents to the emergency room today by ambulance from the intermediate with a 21 pound weight gain over the last week. He is confused at this time and unable to provide much reliable history. History is gathered from intermediate notes, emergency room personnel and his and son-in-law. They report a significant rise in his weight over the past week as well as progressive swelling in his lower legs and up onto the abdomen. He has had intermittent episodes of confusion. No fevers have been noted. Currently he says he feels fine. He thinks he is in [facility]. He does not report any shortness of breath, cough or chest pain. His abdomen does feel a little bit full but he does not report any abdominal pain. No fevers were noted in the intermediate notes. Provider at the intermediate did increase his Lasix over the weekend after the weight gain and swelling were noted but he has not improved with the increased dose of oral furosemide. He did have a recent increase in his metoprolol with concerns of suboptimally controlled atrial fibrillation. He has been participating with physical therapy but his thinks he has been getting a little weaker each day for the past several days. Work-up in the emergency room revealed significant swelling of the abdomen and lower extremities concerning for a diastolic type heart failure picture. He had hyperkalemia and acute on chronic kidney injury as well as suboptimally controlled atrial fibrillation. He will be admitted to the hospital for further management. Back Pain Score (Numeric/FACES): 3 - Related Data Allergies/Adverse Reactions: Allergies Allergy/AdvReac Type Severity Reaction Status Date / Time bee pollen Allergy Other Verified 10/30/19 05:29 pollen extracts Allergy Other Verified 10/30/19 05:29 Home Medications: Home Meds Omeprazole [Prilosec] 20 mg PO DAILY 06/01/13 [History] Quinapril HCl 20 mg PO BID 05/08/18 [History] atorvaSTATin [Lipitor] 10 mg PO BEDTIME 09/08/19 [History] metFORMIN HCl [Metformin HCl] 1,000 mg PO BIDAC 09/08/19 [History] Acetaminophen [Tylenol] 650 mg PO TID 10/30/19 [History] Furosemide [Lasix] 20 mg PO DAILY 10/30/19 [History] Furosemide [Lasix] 60 mg PO ASDIRECTED 10/30/19 [History] Gabapentin [Neurontin] 100 mg PO TID 10/30/19 [History] Insulin Detemir [Levemir Flextouch] 15 units SQ BEDTIME 10/30/19 [History] Metoprolol Tartrate 50 mg PO BID 10/30/19 [History] Multivit with Iron,Minerals [Complete Senior] 1 each PO DAILY 10/30/19 [History] [place]-3S/DHA/Epa/Fish Oil [Fish Oil [place]-3 Softgel] 1 cap PO BID 10/30/19 [ History] Potassium Chloride 20 meq PO ASDIRECTED 10/30/19 [History] Tamsulosin HCl [Flomax] 0.4 mg PO DAILY 10/30/19 [History] amLODIPine Besylate [Amlodipine Besylate] 10 mg PO DAILY 10/30/19 [History] cloNIDine [Catapres] 0.2 mg PO DAILY 10/30/19 [History] Past Medical History HEENT History: Reports: Allergic Rhinitis, Hard of Hearing, Other (See Below) Other HEENT History: tinitis right ear Cardiovascular History: Reports: Heart Valve Replacement, Hypertension Respiratory History: Reports: SOB Gastrointestinal History: Reports: Cholelithiasis, Colon Polyp, GERD Genitourinary History: Reports: Retention, Urinary Musculoskeletal History: Reports: Fracture, Osteoarthritis Neurological History: Reports: Concussion Endocrine/Metabolic History: Reports: Diabetes, Type II Oncologic (Cancer) History: Reports: Other (See Below) Other Oncologic History: skin cancer Dermatologic History: Reports: None - Infectious Disease History Infectious Disease History: Reports: Chicken Pox - Past Surgical History Cardiovascular Surgical History: Reports: Aneurysm Male Surgical History: Reports: None Musculoskeletal Surgical History: Reports: Knee Replacement Dermatological Surgical History: Reports: Skin Biopsy Social & Family History - Family History Cardiac: Reports: Afib - Tobacco Use Smoking Status *Q: Unknown Ever Smoked Second Hand Smoke Exposure: No - Caffeine Use Caffeine Use: Reports: None, Coffee Other Caffeine Use: 1 cup per day - Alcohol Use Alcohol Use History: No - Recreational Drug Use Recreational Drug Use: No H&P Review of Systems - Review of Systems: Review Of Systems: See Below Free Text/Narrative: A complete 12 point review of systems was obtained. Pertinent positives and negatives are noted in the history of present illness. All other systems were reviewed and were negative except as noted. I am not sure how reliable it is with his confusion but he was able to participate in the questions and answers. Exam - Exam Exam: See Below - Vital Signs Vital Signs: Last Vital Signs Temp 36.3 C 10/30/19 05:20 Pulse 100 10/30/19 10:37 Resp 16 10/30/19 10:37 BP 100/63 10/30/19 10:37 Pulse Ox 97 10/30/19 10:37 Weight: 98.883 kg - Exam Quality Assessment: No: Supplemental Oxygen General: Alert, Cooperative. No: Oriented, Mild Distress HEENT: Conjunctiva Clear, Mucosa Moist & Ney. No: Scleral Icterus Neck: Supple, Trachea Midline, JVD. No: Lymphadenopathy Lungs: Clear to Auscultation, Normal Respiratory Effort Cardiovascular: Irregular Rhythm, Tachycardia, Systolic Murmur GI/Abdominal Exam: Normal Bowel Sounds, Soft, Non-Tender, Distended Extremities: Pedal Edema (pitting edema of both legs to the waist ). No: Increased Warmth Peripheral Pulses: 1+: Dorsalis Pedis (L), Dorsalis Pedis (R) Skin: Warm, Dry Neuro Extensive - Mental Status: Alert, Nl Response to Commands. No: Oriented x3 Neuro Extensive - Motor, Sensory, Reflexes: No: Dysarthria, Abnormal Motor, Tremor Psychiatric: Alert, Normal Affect. No: Agitated - Patient Data Lab Results Last 24 hrs: Laboratory Results - last 24 hr 10/30/19 10/30/19 10/30/19 Range/Units 06:15 06:24 06:24 WBC 7.4 (4.5-11.0) K/uL RBC 3.31 L (4.30-5.90) M/uL Hgb 8.8 L D (12.0-15.0) g/dL Hct 29.2 L (40.0-54.0) % MCV 88 (80-98) fL MCH 27 (27-31) pg MCHC 30 L (32-36) % Plt Count 241 (150-400) K/uL Neut % (Auto) 63 (36-66) % Lymph % (Auto) 22 L (24-44) % [place] % (Auto) 12 H (2-6) % Eos % (Auto) 3 (2-4) % Baso % (Auto) 0 (0-1) % Sodium 138 L (140-148) mmol/L Potassium 5.7 H (3.6-5.2) mmol/L Chloride 105 (100-108) mmol/L Carbon Dioxide 23 (21-32) mmol/L Anion Gap 15.7 H (5.0-14.0) mmol/L BUN 51 H D (7-18) mg/dL Creatinine 2.7 H D (0.8-1.3) mg/dL Est Cr Clr Drug Dosing 20.53 mL/min Estimated GFR (MDRD) 22 L (>60) Glucose 67 L (74-106) mg/dL Calcium 7.9 L (8.5-10.1) mg/dL Total Bilirubin 0.5 (0.2-1.0) mg/dL AST 127 H D (15-37) U/L ALT 103 H (12-78) U/L Alkaline Phosphatase 71 (46-116) U/L NT-Pro-B Natriuret Pep 4209 H (5-450) pg/mL Total Protein 6.3 L (6.4-8.2) g/dL Albumin 2.8 L (3.4-5.0) g/dL Globulin 3.5 (2.3-3.5) g/dL Albumin/Globulin Ratio 0.8 L (1.2-2.2) Urine Color Yellow (YELLOW) Urine Appearance Clear (CLEAR) Urine pH 5.0 (5.0-8.0) Ur Specific [place] >= 1.030 (1.008-1.030) Urine Protein 30 H (NEGATIVE) mg/dL Urine Glucose (UA) Negative (NEGATIVE) mg/dL Urine Ketones Trace H (NEGATIVE) mg/dL Urine Occult Blood Trace-intact H (NEGATIVE) Urine Nitrite Negative (NEGATIVE) Urine Bilirubin Small H (NEGATIVE) Urine Urobilinogen 0.2 (0.2-1.0) EU/dL Ur Leukocyte Esterase Trace H (NEGATIVE) Urine RBC 0-5 (0-5) Urine WBC 5-10 H (0-5) Ur Epithelial Cells Not seen Amorphous Sediment Moderate Urine Bacteria Rare Urine Mucus Not seen Result Diagrams: 10/30/19 06:24 10/30/19 06:24 Imaging Impressions Last 24 hrs: CXR-images personally reviewed-lungs clear with no mass, infiltrate or effusion. Cardiomegally is present. Previous sternotomy EKG INTERPRETATION EKG Date: 10/30/19 Rhythm: A-Fib Rate (Beats/Min): 117 [place]: Normal P-Wave: Variable QRS: Normal ST-T: Normal QT: Normal Sepsis Event Note - Evaluation Sepsis Screening Result: No Definite Risk - Focused Exam Vital Signs: Vital Signs Temp Pulse Resp BP Pulse Ox 10/30/19 10:37 100 16 100/63 97 10/30/19 07:20 114 H 16 97/64 98 10/30/19 06:45 78 14 115/76 98 10/30/19 05:20 36.3 C 106 H 18 106/62 98 Date Exam was Performed: 10/30/19 Time Exam was Performed: 13:56 *Q Meaningful Use (ADM) - VTE Risk Assess *Q Each Risk Factor Represents 1 Point: Swollen Legs, Current, Obesity ( BMI > 25 kg/m2), Congestive heart failure (CHF) Total Score 1 Point Risk Factors: 3 Each Risk Factor Represents 2 Points: None Total Score 2 Point Risk Factors: 0 Each Risk Factor Represents 3 Points: Age 75 Years or Greater Total Score 3 Point Risk Factors: 3 Each Risk Factor Represents 5 Points: None Total Score 5 Point Risk Factors: 0 Venous Thromboembolism Risk Factor Score *Q: 6 - Problem List (1) Acute combined systolic and diastolic CHF, NYHA class 3 SNOMED Code(s): 405067102854676, 024030339, 347274182254628 ICD Code: I50.41 - ACUTE COMBINED SYSTOLIC AND DIASTOLIC (CONGESTIVE) HRT FAIL Status: Acute Current Visit: Yes (2) Atrial fibrillation with rapid ventricular response SNOMED Code(s): 970952936445085 ICD Code: I48.91 - UNSPECIFIED ATRIAL FIBRILLATION Status: Acute Current Visit: Yes (3) Acute renal failure superimposed on stage 3 chronic kidney disease SNOMED Code(s): 799350255 ICD Code: N17.9 - ACUTE KIDNEY FAILURE, UNSPECIFIED; N18.3 - CHRONIC KIDNEY DISEASE, STAGE 3 (MODERATE) Status: Acute Current Visit: Yes Qualifiers: Acute renal failure type: unspecified Qualified Code(s): N17.9 - Acute kidney failure, unspecified; N18.3 - Chronic kidney disease, stage 3 (moderate) (4) Hyperkalemia SNOMED Code(s): 43563373 ICD Code: E87.5 - HYPERKALEMIA Status: Acute Current Visit: Yes (5) Diabetes mellitus type II, controlled SNOMED Code(s): 78879005, 851892844 ICD Code: E11.9 - TYPE 2 DIABETES MELLITUS WITHOUT COMPLICATIONS Status: Chronic Current Visit: Yes Qualifiers: Diabetes mellitus snf insulin use: with snf use Diabetes mellitus complication status: with unspecified complications Qualified Code(s) : E11.8 - Type 2 diabetes mellitus with unspecified complications; Z79.4 - assisted (current) use of insulin (6) H/O aortic valve replacement SNOMED Code(s): 3934205325411, 452885047, [id number] ICD Code: Z95.2 - PRESENCE OF PROSTHETIC HEART VALVE Status: Chronic Current Visit: No Problem List Initiated/Reviewed/Updated: Yes Orders Last 24hrs: Active Orders 24 hr Category Date Time Status Patient Status Manage Transfer [TRANSFER] Routine ADT 10/30/19 10:45 Ordered EKG Documentation Completion [RC] ASDIRECTED Care 10/30/19 07:03 Active Vega Catheter Insertion [Insert Urinary Catheter] [OM. Care 10/30/19 06:30 Ordered PC] Q24H Urinary Catheter Assessment [RC] ASDIRECTED Care 10/30/19 06:16 Active CULTURE URINE [RM] Stat Lab 10/30/19 06:52 Received Sodium Chloride 0.9% [Saline Flush] Med 10/30/19 06:16 Active 10 ml FLUSH ASDIRECTED PRN Saline Lock Insert [OM.PC] Routine Oth 10/30/19 06:16 Ordered Resuscitation Status Routine Resus Stat 10/30/19 10:47 Ordered EKG 12 Lead [EK] Routine Ther 10/30/19 07:03 Ordered Medication Orders Sodium Chloride (Saline Flush) 10 ml FLUSH ASDIRECTED PRN PRN Reason: Keep Vein Open Last Admin: 10/30/19 07:12 Dose: 10 ml Assessment/Plan Comment:: ASSESSMENT AND PLAN - Acute on chronic combined systolic and diastolic congestive heart failure, NYHA III-progression in symptoms as well as swelling over the past week with a 21 pound weight gain. No obvious trigger and it is unclear if the atrial fibrillation caused the heart failure or was a result of the heart failure. Patient does not report recent anginal symptoms. Condition is worsening despite medication changes made as an outpatient. He did receive 60 mg of IV furosemide in the emergency room. -Assess volume status and response to emergency room dosing, re-dose diuretic this afternoon -Vega catheter for strict intake and output monitoring -Continue beta-keri -Hold HINA inhibitor and additional antihypertensives with hypotension -Echocardiogram (last echo was >1 year ago) Atrial fibrillation with rapid ventricular response-heart rate currently in the 110s. Recent change to his metoprolol by the cardiology folks is noted. Not clear if the suboptimally controlled heart rate worsened his heart failure or was a result of the heart failure. CHADS-VASC score is greater than 2 but he is not currently anticoagulated because of recent bleeding issues, anemia and high fall risk. -Cardiac monitoring -Consider increased beta-keri versus addition of diltiazem Acute on chronic kidney disease-baseline is stage III and GFR now places him in the stage IV range. I suspect this is related to his CHF and will hopefully improve with diuresis but he will need close monitoring with the aggressive diuresis planned. -Labs in the morning Hyperkalemia-probably combo with poor renal function and use of HINA inhibitor. -Furosemide as above -Hold HINA inhibitor -Repeat this afternoon Type 2 diabetes mellitus-sugar mildly low this morning. Appetite has been good. -Continue Lantus but decrease dose slightly -4 times daily Accu-Cheks -consider sliding scale if sugars consistently elevated Status post aortic valve replacement-last echo showed moderate perivalvular regurgitation. Maintenance issues - - DVT prophylaxis -enoxaparin - GI prophylaxis -PPI - Nutrition -low-sodium - Vega catheter -placed for strict intake and output monitoring during the acute phase of diuresis CODE STATUS -DNR/DNI Admission justification -this patient will be admitted for inpatient services and is medically appropriate meeting medical necessity for inpatient admission as outlined in my documentation. I reasonably expect the patient will require inpatient services that span a period time over 2 midnights. I reasonably expect this patient to be discharged or transferred within 96 hours [facility]. Disposition -I would anticipate discharge back to the intermediate after the hospital stay Primary care physician -Dr Edilberto Romano M.D. - Mortality Measure Prognosis:: Good
[2019-10-30] MEDS ORDERED: Ondansetron 4 MG Tab.DIS PO PRN (11:10)
[2019-10-30] MEDS ORDERED: Ondansetron 4 MG/2 ML SDV IV PRN (11:10)
[2019-10-30] MEDS ORDERED: Magnesium Hydroxide 400 MG/5 ML Susp 30 ML Cup PO PRN (11:10)
[2019-10-30] MEDS ORDERED: LORazepam 2 MG/ML SDV IVPUSH PRN (11:10)
[2019-10-30] MEDS ORDERED: Albuterol 0.083% 2.5 MG/3 ML Neb Soln NEB PRN (11:10)
[2019-10-30] MEDS ORDERED: Acetaminophen 325 MG Tab PO PRN (11:10)
[2019-10-30] MEDS ORDERED: Enoxaparin 40 MG/0.4 ML Syringe SUBCUT SCH (12:00)
[2019-10-30] MEDS: Gabapentin 100 MG Cap PO SCH ×2 (15:22→21:38)
[2019-10-30] MEDS: Acetaminophen 325 MG Tab PO SCH ×2 (15:22→21:38)
[2019-10-30] MEDS: Bumetanide 2.5 MG/10 ML MDV IVPUSH SCH (15:59)
[2019-10-30] MEDS: Metoprolol Tartrate 25 MG Tab PO SCH (17:51)
[2019-10-30] MEDS ORDERED: Metoprolol Tartrate 50 MG Tab PO SCH (21:00)
[2019-10-30] MEDS: atorvaSTATin 10 MG Tab PO SCH (21:38)
[2019-10-30] MEDS: Melatonin 3 MG Tab PO SCH (21:38)
[2019-10-30] MEDS: Insulin Glargine,Human Rec. Analog 100 Units/ML 3 ML Pen SUBCUT SCH (21:40)
[2019-10-31] MEDS: Bumetanide 2.5 MG/10 ML MDV IVPUSH SCH (04:41)
[2019-10-31] MEDS: Pantoprazole 40 MG Tab.CR PO SCH (08:19)
[2019-10-31] MEDS: Gabapentin 100 MG Cap PO SCH ×3 (08:19→20:48)
[2019-10-31] MEDS: Acetaminophen 325 MG Tab PO SCH ×3 (08:19→20:47)
[2019-10-31] MEDS: Tamsulosin 0.4 MG Cap.ER PO SCH (08:19)
[2019-10-31] MEDS: Multivitamins with Iron/Calcium/Folic Acid/Minerals Tab PO SCH (08:19)
[2019-10-31] MEDS: Metoprolol Tartrate 25 MG Tab PO SCH ×3 (08:36→20:45)
[2019-10-31] MEDS: Magnesium Sulfate/Water 2 GM in Premix Bag 1 BAG IV SCH ×2 (09:40→15:09)
[2019-10-31] MEDS: Enoxaparin 30 MG/0.3 ML Syringe SUBCUT SCH (09:41)
--- NOTE | 2019-10-31 11:18 | PCM.PN ---
- General Info Date of Service: 10/31/19 Subjective Update: No acute events overnight. He is more alert and interactive today but still somewhat confused. His weight is down about 2 pounds though his urine output has not been great. Edema from the knee to the foot has improved but he still has a fair amount of edema in the dependent areas of the upper leg and buttocks. No complaints of shortness of breath or chest pain. He did not sleep very well last night. Kidney function stable. Potassium slightly better than yesterday. No fevers. Urine culture is growing a gram-positive cocci but urinalysis was not very suspicious for infection. Functional Status: Reports: Pain Controlled, Tolerating Diet - Review of Systems General: Reports: Weakness. Denies: Fever - Patient Data Vitals - Most Recent: Last Vital Signs Temp 36.2 C 10/31/19 08:25 Pulse 117 H 10/31/19 08:36 Resp 20 10/31/19 08:05 BP 107/65 10/31/19 08:36 Pulse Ox 96 10/31/19 08:05 Weight - Most Recent: 98.339 kg I&O - Last 24 Hours: Intake & Output 10/30/19 10/31/19 10/31/19 22:59 06:59 14:59 Intake Total 50 Output Total 301 300 Balance -301 -300 50 Lab Results Last 24 Hours: Laboratory Results - last 24 hr 10/30/19 10/31/19 10/31/19 Range/Units 16:23 05:11 05:11 WBC 7.4 (4.5-11.0) K/uL RBC 3.46 L (4.30-5.90) M/uL Hgb 9.0 L (12.0-15.0) g/dL Hct 30.5 L (40.0-54.0) % MCV 88 (80-98) fL MCH 26 L (27-31) pg MCHC 30 L (32-36) % Plt Count 248 (150-400) K/uL Sodium 137 L 138 L (140-148) mmol/L Potassium 5.5 H 5.6 H (3.6-5.2) mmol/L Chloride 103 104 (100-108) mmol/L Carbon Dioxide 21 23 (21-32) mmol/L Anion Gap 18.5 H 16.6 H (5.0-14.0) mmol/L BUN 54 H 60 H (7-18) mg/dL Creatinine 2.8 H 2.8 H (0.8-1.3) mg/dL Est Cr Clr Drug Dosing 19.80 19.80 mL/min Estimated GFR (MDRD) 22 L 22 L (>60) Glucose 126 H 145 H (74-106) mg/dL Calcium 8.0 L 8.0 L (8.5-10.1) mg/dL Magnesium 1.6 L (1.8-2.4) mg/dL Elie Results Last 24 Hours: Microbiology 10/30/19 06:52 Urine Culture - Preliminary Urine, Bladder Med Orders - Current: Current Medications Acetaminophen (Tylenol) 650 mg PO TID [facility] Last Admin: 10/31/19 08:19 Dose: 650 mg Acetaminophen (Tylenol) 650 mg PO Q4H PRN PRN Reason: Pain (Mild 1-3)/fever Albuterol (Proventil Neb Soln) 2.5 mg NEB Q4H PRN PRN Reason: Shortness Of Breath/wheezing Atorvastatin Calcium (Lipitor) 10 mg PO BEDTIME [facility] Last Admin: 10/30/19 21:38 Dose: 10 mg Enoxaparin Sodium (Lovenox) 30 mg SUBCUT DAILY [facility] Last Admin: 10/31/19 09:41 Dose: 30 mg Gabapentin (Neurontin) 100 mg PO TID [facility] Last Admin: 10/31/19 08:19 Dose: 100 mg Magnesium Sulfate 2 gm/ Premix 50 mls @ 25 mls/hr IV Q6H [facility] Stop: 10/31/19 16:59 Last Admin: 10/31/19 09:40 Dose: 25 mls/hr Insulin Glargine (Lantus Solostar) 10 units SUBCUT BEDTIME [facility] Last Admin: 10/30/19 21:40 Dose: 10 units Lorazepam (Ativan) 0.5 mg IVPUSH Q4H PRN PRN Reason: Nausea/Vomiting Magnesium Hydroxide (Milk Of Magnesia) 30 ml PO Q12H PRN PRN Reason: Constipation Melatonin (Melatonin) 9 mg PO BEDTIME [facility] Last Admin: 10/30/19 21:38 Dose: 9 mg Metoprolol Tartrate (Lopressor) 75 mg PO BID [facility] Last Admin: 10/31/19 08:36 Dose: Not Given Multivitamins/Minerals (Thera M Plus) 1 tab PO DAILY [facility] Last Admin: 10/31/19 08:19 Dose: 1 tab Ondansetron HCl (Zofran Odt) 4 mg PO Q6H PRN PRN Reason: Nausea able to take PO Ondansetron HCl (Zofran) 4 mg IV Q6H PRN PRN Reason: Nausea/Vomiting Pantoprazole Sodium (Protonix) 40 mg PO ACBREAKFAST [facility] Last Admin: 10/31/19 08:19 Dose: 40 mg Senna/Docusate Sodium (Senna Plus) 1 tab PO BID PRN PRN Reason: Constipation Sodium Chloride (Saline Flush) 10 ml FLUSH ASDIRECTED PRN PRN Reason: Keep Vein Open Last Admin: 10/30/19 07:12 Dose: 10 ml Tamsulosin HCl (Flomax) 0.4 mg PO DAILY [facility] Last Admin: 10/31/19 08:19 Dose: 0.4 mg Discontinued Medications Hydrocodone Bitart/Acetaminophen (Dexter 325-10 Mg) 1 tab PO ONETIME ONE Stop: 10/30/19 08:16 Last Admin: 10/30/19 08:19 Dose: 1 tab Bumetanide (Bumex) 2 mg IVPUSH Q12H [facility] Last Admin: 10/31/19 04:41 Dose: 2 mg Enoxaparin Sodium (Lovenox) 40 mg SUBCUT DAILY [facility] Last Admin: 10/30/19 12:30 Dose: 40 mg Furosemide (Lasix) 60 mg IVPUSH ONETIME ONE Stop: 10/30/19 06:56 Last Admin: 10/30/19 07:12 Dose: 60 mg Hydromorphone HCl (Dilaudid) 0.5 mg IVPUSH ONETIME ONE Stop: 10/30/19 07:23 Last Admin: 10/30/19 07:39 Dose: 0.5 mg Lidocaine HCl (Xylocaine 2% Jelly) 10 ml MUCMEM ONETIME ONE Stop: 10/30/19 05:53 Last Admin: 10/30/19 05:57 Dose: 10 ml Metoprolol Tartrate (Lopressor) 50 mg PO BID [facility] - Exam Quality Assessment: No: Supplemental Oxygen General: Alert, Cooperative, No Acute Distress Neck: JVD Lungs: Clear to Auscultation, Normal Respiratory Effort Cardiovascular: Irregular Rhythm, Tachycardia, Murmurs GI/Abdominal Exam: Soft, No Distention Extremities: Pedal Edema. No: Increased Warmth Skin: Warm, Dry Psy/Mental Status: Alert, Normal Affect. No: Agitated Sepsis Event Note - Evaluation Sepsis Screening Result: Sepsis Risk - Focused Exam Vital Signs: Vital Signs Temp Pulse Pulse Resp BP BP Pulse Ox 10/31/19 08:36 117 H 107/65 10/31/19 08:25 36.2 C 117 H 10/31/19 08:05 36.6 C 41 L 20 107/65 96 10/31/19 03:00 36.7 C 85 17 91/59 L 96 Date Exam was Performed: 10/31/19 Time Exam was Performed: 14:31 - Problem List & Annotations (1) Acute combined systolic and diastolic CHF, NYHA class 3 SNOMED Code(s): 570283619278373, 336338337, 018661166244856 Code(s): I50.41 - ACUTE COMBINED SYSTOLIC AND DIASTOLIC (CONGESTIVE) HRT FAIL Status: Acute Current Visit: Yes (2) Atrial fibrillation with rapid ventricular response SNOMED Code(s): 344238047469509 Code(s): I48.91 - UNSPECIFIED ATRIAL FIBRILLATION Status: Acute Current Visit: Yes (3) Acute renal failure superimposed on stage 3 chronic kidney disease SNOMED Code(s): 031576951 Code(s): N17.9 - ACUTE KIDNEY FAILURE, UNSPECIFIED; N18.3 - CHRONIC KIDNEY DISEASE, STAGE 3 (MODERATE) Status: Acute Current Visit: Yes Qualifiers: Acute renal failure type: unspecified Qualified Code(s): N17.9 - Acute kidney failure, unspecified; N18.3 - Chronic kidney disease, stage 3 (moderate) (4) Hyperkalemia SNOMED Code(s): 49369522 Code(s): E87.5 - HYPERKALEMIA Status: Acute Current Visit: Yes (5) Diabetes mellitus type II, controlled SNOMED Code(s): 29071738, 828616896 Code(s): E11.9 - TYPE 2 DIABETES MELLITUS WITHOUT COMPLICATIONS Status: Chronic Current Visit: Yes Qualifiers: Diabetes mellitus drawing tender insulin use: with drawing tender use Diabetes mellitus complication status: with unspecified complications Qualified Code(s) : E11.8 - Type 2 diabetes mellitus with unspecified complications; 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 (6) H/O aortic valve replacement SNOMED Code(s): 7871784344402, 020242887, 4227750408323 Code(s): Z95.2 - PRESENCE OF PROSTHETIC HEART VALVE Status: Chronic Current Visit: No - Problem List Review Problem List Initiated/Reviewed/Updated: Yes - My Orders Last 24 Hours: My Active Orders 10/30/19 10:47 Resuscitation Status Routine 10/30/19 11:10 Patient Status [ADT] Routine Antiembolic Devices [RC] .Routine Cardiac Monitoring [RC] CONTINUOUS Communication Order [RC] PRN Communication Order [RC] PRN Diabetes Education [RC] Click to Edit Height and Weight [RC] 0500 Intake and Output [RC] QSHIFT Notify Provider Vital Signs [RC] ASDIRECTED Notify Provider [RC] .PRN Oxygen Therapy [RC] .PRN RT Aerosol Therapy [RC] ASDIRECTED Up With Assistance [RC] ASDIRECTED VTE/DVT Education [RC] Per Unit Routine Vital Signs [RC] Q4H Echo Comp wo Cont [US] Routine Acetaminophen [Tylenol] 650 mg PO Q4H PRN Albuterol [Proventil Neb Soln] 2.5 mg NEB Q4H PRN Docusate Sodium/Sennosides [Senna Plus] 1 tab PO BID PRN LORazepam [Ativan] 0.5 mg IVPUSH Q4H PRN Magnesium Hydroxide [Milk of Magnesia] 30 ml PO Q12H PRN Ondansetron [Zofran ODT] 4 mg PO Q6H PRN Ondansetron [Zofran] 4 mg IV Q6H PRN Antiembolic Hose [OM.PC] Routine 10/30/19 14:00 Acetaminophen [Tylenol] 650 mg PO TID Gabapentin [Neurontin] 100 mg PO TID 10/30/19 16:00 Bumetanide [Bumex] 2 mg IVPUSH Q12H 10/30/19 21:00 Insulin Glarg,Human.Rec.Analog [LantUS Solostar] 10 units SUBCUT BEDTIME Melatonin 9 mg PO BEDTIME Metoprolol Tartrate [Lopressor] 75 mg PO BID atorvaSTATin [Lipitor] 10 mg PO BEDTIME 10/30/19 Lunch 2 Gram Sodium Diet [DIET] 10/31/19 07:00 PT Evaluation and Treatment [CONS] Routine 10/31/19 07:30 Pantoprazole [ProTONIX] 40 mg PO ACBREAKFAST 10/31/19 09:00 Enoxaparin [Lovenox] 30 mg SUBCUT DAILY Magnesium Sulfate/Water [Magnesium Sulfate in Water Premix] 2 gm Premix Bag 1 bag IV Q6H Multivitamins w-Iron/Ca/FA/Min [Thera M Plus] 1 tab PO DAILY Tamsulosin [Flomax] 0.4 mg PO DAILY 10/31/19 11:15 Digoxin [Lanoxin] 125 mcg PO ONETIME ONE 10/31/19 11:30 GLUCOSE POC LAB TO COLLECT [POC] QIDACANDBED 10/31/19 12:00 Bumetanide [Bumex] 3 mg IVPUSH ONETIME ONE 10/31/19 16:30 GLUCOSE POC LAB TO COLLECT [POC] QIDACANDBED 10/31/19 21:00 GLUCOSE POC LAB TO COLLECT [POC] QIDACANDBED 11/01/19 05:00 BASIC METABOLIC PANEL,BMP [CHEM] Timed 11/01/19 07:30 GLUCOSE POC LAB TO COLLECT [POC] QIDACANDBED 11/01/19 11:30 GLUCOSE POC LAB TO COLLECT [POC] QIDACANDBED 11/01/19 16:30 GLUCOSE POC LAB TO COLLECT [POC] QIDACANDBED 11/01/19 21:00 GLUCOSE POC LAB TO COLLECT [POC] QIDACANDBED 11/02/19 07:30 GLUCOSE POC LAB TO COLLECT [POC] QIDACANDBED 11/02/19 11:30 GLUCOSE POC LAB TO COLLECT [POC] QIDACANDBED 11/02/19 16:30 GLUCOSE POC LAB TO COLLECT [POC] QIDACANDBED 11/02/19 21:00 GLUCOSE POC LAB TO COLLECT [POC] QIDACANDBED 11/03/19 07:30 GLUCOSE POC LAB TO COLLECT [POC] QIDACANDBED 11/03/19 11:30 GLUCOSE POC LAB TO COLLECT [POC] QIDACANDBED 11/03/19 16:30 GLUCOSE POC LAB TO COLLECT [POC] QIDACANDBED 11/03/19 21:00 GLUCOSE POC LAB TO COLLECT [POC] QIDACANDBED 11/04/19 07:30 GLUCOSE POC LAB TO COLLECT [POC] QIDACANDBED 11/04/19 11:30 GLUCOSE POC LAB TO COLLECT [POC] QIDACANDBED 11/04/19 16:30 GLUCOSE POC LAB TO COLLECT [POC] QIDACANDBED 11/04/19 21:00 GLUCOSE POC LAB TO COLLECT [POC] QIDACANDBED 11/05/19 07:30 GLUCOSE POC LAB TO COLLECT [POC] QIDACANDBED 11/05/19 11:30 GLUCOSE POC LAB TO COLLECT [POC] QIDACANDBED - Plan Plan:: ASSESSMENT AND PLAN - Acute on chronic combined systolic and diastolic congestive heart failure, NYHA III-echocardiogram was stable with mild reduction in systolic function and some diastolic dysfunction along with valvular abnormalities. Weight is down a couple of pounds. He is not hypoxic. Still has a fair amount of edema. Kidney function stable. -Bumetanide x1 at noon and then reassess volume status later in the day -Vega catheter for strict intake and output monitoring -Continue beta-keri -Hold HINA inhibitor and additional antihypertensives with hypotension Atrial fibrillation with rapid ventricular response-heart rate currently around 100 but is a little better with the increased metoprolol. -Cardiac monitoring -Trial of digoxin -Consider increased beta-keri versus addition of diltiazem Acute on chronic kidney disease-kidney function stable but not improved since the time of admission. -Labs in the morning Hyperkalemia-level still mildly elevated but stable. -Furosemide as above -Hold HINA inhibitor -Repeat in the morning Type 2 diabetes mellitus-sugars acceptable so far. -Continue Lantus but decrease dose slightly -4 times daily Accu-Cheks -consider sliding scale if sugars consistently elevated Status post aortic valve replacement-stable. Maintenance issues - - DVT prophylaxis -enoxaparin - GI prophylaxis -PPI - Nutrition -low-sodium - Vega catheter -placed for strict intake and output monitoring during the acute phase of diuresis Disposition -I would anticipate discharge back to the group home after the hospital stay Ramo Romano M.D.
[2019-10-31] MEDS ORDERED: Digoxin 125 MCG Tab PO ONE (12:00)
[2019-10-31] MEDS ORDERED: Bumetanide 1 MG/4 ML MDV IVPUSH ONE (12:00)
[2019-10-31] MEDS ORDERED: Metoprolol Tartrate 5 MG/5 ML SDV IVPUSH ONE (18:17)
[2019-10-31] MEDS: Melatonin 3 MG Tab PO SCH (20:46)
[2019-10-31] MEDS: atorvaSTATin 10 MG Tab PO SCH (20:47)
[2019-10-31] MEDS: Insulin Glargine,Human Rec. Analog 100 Units/ML 3 ML Pen SUBCUT SCH (20:58)
[2019-11-01] MEDS: Pantoprazole 40 MG Tab.CR PO SCH (07:45)
[2019-11-01] MEDS ORDERED: Bumetanide 1 MG/4 ML MDV IVPUSH ONE (09:00)
[2019-11-01] MEDS: Amoxicillin/Clavulanate K 500-125 MG Tab PO SCH ×2 (09:16→21:08)
[2019-11-01] MEDS: Tamsulosin 0.4 MG Cap.ER PO SCH (09:17)
[2019-11-01] MEDS: Metoprolol Tartrate 25 MG Tab PO SCH (09:18)
[2019-11-01] MEDS: Enoxaparin 30 MG/0.3 ML Syringe SUBCUT SCH (09:20)
[2019-11-01] MEDS: Gabapentin 100 MG Cap PO SCH ×3 (09:20→21:08)
[2019-11-01] MEDS: Multivitamins with Iron/Calcium/Folic Acid/Minerals Tab PO SCH (09:20)
[2019-11-01] MEDS: Acetaminophen 325 MG Tab PO SCH ×3 (09:21→21:09)
--- NOTE | 2019-11-01 12:39 | PCM.PN ---
- General Info Date of Service: 11/01/19 Subjective Update: No acute events overnight. He does have some intermittent episodes of increased confusion though overall he has been redirectable and fairly well behaved. No significant agitation. He says that he feels well this morning. No complaints of shortness of breath or abdominal pain. He had a great breakfast. Excellent response to bumetanide yesterday. Lower extremity edema is quite a bit better but he still has a fair amount of dependent edema. Heart rate is a little better controlled with the increased dose of metoprolol but still borderline acceptable rate control. His urine culture did grow out enterococcus. Functional Status: Reports: Pain Controlled, Tolerating Diet - Review of Systems General: Reports: Weakness. Denies: Fever Neurological: Reports: Confusion - Patient Data Vitals - Most Recent: Last Vital Signs Temp 35.9 C L 11/01/19 10:40 Pulse 111 H 11/01/19 10:40 Resp 16 11/01/19 10:40 BP 95/57 L 11/01/19 10:40 Pulse Ox 98 11/01/19 10:40 Weight - Most Recent: 96 kg I&O - Last 24 Hours: Intake & Output 10/31/19 11/01/19 11/01/19 22:59 06:59 14:59 Intake Total 350 600 Output Total 1825 850 Balance -1475 -850 600 Lab Results Last 24 Hours: Laboratory Results - last 24 hr 11/01/19 Range/Units 04:48 Sodium 139 L (140-148) mmol/L Potassium 4.4 (3.6-5.2) mmol/L Chloride 106 (100-108) mmol/L Carbon Dioxide 25 (21-32) mmol/L Anion Gap 12.4 (5.0-14.0) mmol/L BUN 58 H (7-18) mg/dL Creatinine 2.5 H (0.8-1.3) mg/dL Est Cr Clr Drug Dosing 22.08 mL/min Estimated GFR (MDRD) 25 L (>60) Glucose 116 H (74-106) mg/dL Calcium 8.0 L (8.5-10.1) mg/dL Magnesium 2.1 (1.8-2.4) mg/dL Elie Results Last 24 Hours: Microbiology 10/30/19 06:52 Urine Culture - Final Urine, Bladder Enterococcus Faecalis Med Orders - Current: Current Medications Acetaminophen (Tylenol) 650 mg PO TID [facility] Last Admin: 11/01/19 09:21 Dose: 650 mg Acetaminophen (Tylenol) 650 mg PO Q4H PRN PRN Reason: Pain (Mild 1-3)/fever Albuterol (Proventil Neb Soln) 2.5 mg NEB Q4H PRN PRN Reason: Shortness Of Breath/wheezing Amoxicillin/Clavulanate Potassium (Augmentin 500 Mg\125 Mg) 1 tab PO Q12H [facility] Last Admin: 11/01/19 09:16 Dose: 1 tab Atorvastatin Calcium (Lipitor) 10 mg PO BEDTIME [facility] Last Admin: 10/31/19 20:47 Dose: 10 mg Enoxaparin Sodium (Lovenox) 30 mg SUBCUT DAILY [facility] Last Admin: 11/01/19 09:20 Dose: 30 mg Gabapentin (Neurontin) 100 mg PO TID [facility] Last Admin: 11/01/19 09:20 Dose: 100 mg Insulin Glargine (Lantus Solostar) 10 units SUBCUT BEDTIME [facility] Last Admin: 10/31/19 20:58 Dose: 10 units Lorazepam (Ativan) 0.5 mg IVPUSH Q4H PRN PRN Reason: Nausea/Vomiting Magnesium Hydroxide (Milk Of Magnesia) 30 ml PO Q12H PRN PRN Reason: Constipation Melatonin (Melatonin) 9 mg PO BEDTIME [facility] Last Admin: 10/31/19 20:46 Dose: 9 mg Metoprolol Tartrate (Lopressor) 75 mg PO BID [facility] Last Admin: 11/01/19 09:18 Dose: 75 mg Multivitamins/Minerals (Thera M Plus) 1 tab PO DAILY [facility] Last Admin: 11/01/19 09:20 Dose: 1 tab Ondansetron HCl (Zofran Odt) 4 mg PO Q6H PRN PRN Reason: Nausea able to take PO Ondansetron HCl (Zofran) 4 mg IV Q6H PRN PRN Reason: Nausea/Vomiting Pantoprazole Sodium (Protonix) 40 mg PO ACBREAKFAST [facility] Last Admin: 11/01/19 07:45 Dose: 40 mg Senna/Docusate Sodium (Senna Plus) 1 tab PO BID PRN PRN Reason: Constipation Sodium Chloride (Saline Flush) 10 ml FLUSH ASDIRECTED PRN PRN Reason: Keep Vein Open Last Admin: 10/30/19 07:12 Dose: 10 ml Tamsulosin HCl (Flomax) 0.4 mg PO DAILY [facility] Last Admin: 11/01/19 09:17 Dose: 0.4 mg Discontinued Medications Hydrocodone Bitart/Acetaminophen ([place]ades 325-10 Mg) 1 tab PO ONETIME ONE Stop: 10/30/19 08:16 Last Admin: 10/30/19 08:19 Dose: 1 tab Bumetanide (Bumex) 2 mg IVPUSH Q12H [facility] Last Admin: 10/31/19 04:41 Dose: 2 mg Bumetanide (Bumex) 3 mg IVPUSH ONETIME ONE Stop: 10/31/19 12:01 Last Admin: 10/31/19 13:00 Dose: 3 mg Bumetanide (Bumex) 3 mg IVPUSH ONETIME ONE Stop: 11/01/19 09:01 Last Admin: 11/01/19 09:32 Dose: 3 mg Digoxin (Lanoxin) 125 mcg PO ONETIME ONE Stop: 10/31/19 12:01 Last Admin: 10/31/19 13:01 Dose: 125 mcg Enoxaparin Sodium (Lovenox) 40 mg SUBCUT DAILY [facility] Last Admin: 10/30/19 12:30 Dose: 40 mg Furosemide (Lasix) 60 mg IVPUSH ONETIME ONE Stop: 10/30/19 06:56 Last Admin: 10/30/19 07:12 Dose: 60 mg Hydromorphone HCl (Dilaudid) 0.5 mg IVPUSH ONETIME ONE Stop: 10/30/19 07:23 Last Admin: 10/30/19 07:39 Dose: 0.5 mg Magnesium Sulfate 2 gm/ Premix 50 mls @ 25 mls/hr IV Q6H [facility] Stop: 10/31/19 16:59 Last Admin: 10/31/19 15:09 Dose: 25 mls/hr Lidocaine HCl (Xylocaine 2% Jelly) 10 ml MUCMEM ONETIME ONE Stop: 10/30/19 05:53 Last Admin: 10/30/19 05:57 Dose: 10 ml Metoprolol Tartrate (Lopressor) 50 mg PO BID [facility] Metoprolol Tartrate (Lopressor) 5 mg IVPUSH ONETIME ONE Stop: 10/31/19 18:18 Last Admin: 10/31/19 18:37 Dose: 5 mg - Exam Quality Assessment: No: Supplemental Oxygen General: Alert, Cooperative, No Acute Distress. No: Oriented Lungs: Clear to Auscultation, Normal Respiratory Effort Cardiovascular: Regular Rate, Regular Rhythm, Murmurs GI/Abdominal Exam: Soft, No Distention Extremities: Pedal Edema. No: Increased Warmth Skin: Warm, Dry Psy/Mental Status: Alert, Normal Affect Sepsis Event Note - Evaluation Sepsis Screening Result: No Definite Risk - Focused Exam Vital Signs: Vital Signs Temp Pulse Pulse Resp BP BP Pulse Ox 11/01/19 10:40 35.9 C L 111 H 16 95/57 L 98 11/01/19 09:18 98 105/58 L 11/01/19 07:34 36.1 C 98 16 105/58 L 97 11/01/19 04:36 36.4 C 92 16 98/77 96 11/01/19 00:50 95 16 101/60 97 Date Exam was Performed: 11/01/19 Time Exam was Performed: 14:21 - Problem List & Annotations (1) Acute combined systolic and diastolic CHF, NYHA class 3 SNOMED Code(s): 772676047110929, 082421048, 450563426417597 Code(s): I50.41 - ACUTE COMBINED SYSTOLIC AND DIASTOLIC (CONGESTIVE) HRT FAIL Status: Acute Current Visit: Yes (2) Atrial fibrillation with rapid ventricular response SNOMED Code(s): 151381254314455 Code(s): I48.91 - UNSPECIFIED ATRIAL FIBRILLATION Status: Acute Current Visit: Yes (3) Acute renal failure superimposed on stage 3 chronic kidney disease SNOMED Code(s): 941154238 Code(s): N17.9 - ACUTE KIDNEY FAILURE, UNSPECIFIED; N18.3 - CHRONIC KIDNEY DISEASE, STAGE 3 (MODERATE) Status: Acute Current Visit: Yes Qualifiers: Acute renal failure type: unspecified Qualified Code(s): N17.9 - Acute kidney failure, unspecified; N18.3 - Chronic kidney disease, stage 3 (moderate) (4) Hyperkalemia SNOMED Code(s): 73575186 Code(s): E87.5 - HYPERKALEMIA Status: Acute Current Visit: Yes (5) Diabetes mellitus type II, controlled SNOMED Code(s): 53457840, 879546527 Code(s): E11.9 - TYPE 2 DIABETES MELLITUS WITHOUT COMPLICATIONS Status: Chronic Current Visit: Yes Qualifiers: Diabetes 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: with intermediate use Diabetes mellitus complication status: with unspecified complications Qualified Code(s) : E11.8 - Type 2 diabetes mellitus with unspecified complications; Z79.4 - penitentiary (current) use of insulin (6) H/O aortic valve replacement SNOMED Code(s): 7019061506859, 731557640, 5189294880636 Code(s): Z95.2 - PRESENCE OF PROSTHETIC HEART VALVE Status: Chronic Current Visit: No (7) Acute cystitis without hematuria SNOMED Code(s): 78696410 Code(s): N30.00 - ACUTE CYSTITIS WITHOUT HEMATURIA Status: Acute Current Visit: Yes - Problem List Review Problem List Initiated/Reviewed/Updated: Yes - My Orders Last 24 Hours: My Active Orders 11/01/19 09:00 Amoxicillin/Clavulanate K [Augmentin 500 MG\125 MG] 1 tab PO Q12H 11/01/19 12:38 Discontinue Telemetry Monitoring [Cardiac Monitoring Discontinue] [RC] Click to Edit 11/01/19 16:30 GLUCOSE POC LAB TO COLLECT [POC] QIDACANDBED 11/01/19 20:00 Bumetanide [Bumex] 3 mg IVPUSH Q12H 11/01/19 21:00 GLUCOSE POC LAB TO COLLECT [POC] QIDACANDBED Metoprolol Succinate [Toprol XL] 100 mg PO BID 11/02/19 05:00 BASIC METABOLIC PANEL,BMP [CHEM] Timed 11/02/19 07:30 GLUCOSE POC LAB TO COLLECT [POC] QIDACANDBED 11/02/19 11:30 GLUCOSE POC LAB TO COLLECT [POC] QIDACANDBED 11/02/19 16:30 GLUCOSE POC LAB TO COLLECT [POC] QIDACANDBED 11/02/19 21:00 GLUCOSE POC LAB TO COLLECT [POC] QIDACANDBED 11/03/19 07:30 GLUCOSE POC LAB TO COLLECT [POC] QIDACANDBED 11/03/19 11:30 GLUCOSE POC LAB TO COLLECT [POC] QIDACANDBED 11/03/19 16:30 GLUCOSE POC LAB TO COLLECT [POC] QIDACANDBED 11/03/19 21:00 GLUCOSE POC LAB TO COLLECT [POC] QIDACANDBED 11/04/19 07:30 GLUCOSE POC LAB TO COLLECT [POC] QIDACANDBED 11/04/19 11:30 GLUCOSE POC LAB TO COLLECT [POC] QIDACANDBED 11/04/19 16:30 GLUCOSE POC LAB TO COLLECT [POC] QIDACANDBED 11/04/19 21:00 GLUCOSE POC LAB TO COLLECT [POC] QIDACANDBED 11/05/19 07:30 GLUCOSE POC LAB TO COLLECT [POC] QIDACANDBED 11/05/19 11:30 GLUCOSE POC LAB TO COLLECT [POC] QIDACANDBED - Plan Plan:: ASSESSMENT AND PLAN - Acute on chronic combined systolic and diastolic congestive heart failure, NYHA III-echocardiogram was stable with mild reduction in systolic function and some diastolic dysfunction along with valvular abnormalities. Good response to diuresis with the increased dose of bumetanide yesterday. Still fair amount of volume to remove but overall he is doing quite a bit better. -Bumetanide 3 mg every 12 hours -Vega catheter for strict intake and output monitoring, consider removal tomorrow -Continue beta-keri -Hold HINA inhibitor and additional antihypertensives with hypotension Atrial fibrillation with rapid ventricular response-rate control is still borderline/suboptimal. -Cardiac monitoring -Increased dose of metoprolol and change to long-acting Acute cystitis without hematuria-no significant symptoms and urinalysis not impressive for infection but urine culture did grow out a moderate quantity of enterococcus. With his confusion I am going to treat this like it is an infection and see if he improves over the next 24 to 48 hours. If there is no change we will discontinue antibiotics. If he does improve we will continue them for a total of 5 days. -Amoxicillin/clavulanate twice daily Acute on chronic kidney disease-kidney function slowly improving. -Labs in the morning Hyperkalemia-potassium level is now normal. -Furosemide as above -Hold HINA inhibitor -Repeat in the morning Type 2 diabetes mellitus-sugars acceptable so far. -Continue Lantus but decrease dose slightly -4 times daily Accu-Cheks -consider sliding scale if sugars consistently elevated Status post aortic valve replacement-stable. Maintenance issues - - DVT prophylaxis -enoxaparin - GI prophylaxis -PPI - Nutrition -low-sodium - Vega catheter -placed for strict intake and output monitoring during the acute phase of diuresis Disposition -I would anticipate discharge back to the care home after the hospital stay Ramo Romano M.D.
[2019-11-01] MEDS: Bumetanide 1 MG/4 ML MDV IVPUSH SCH (20:45)
[2019-11-01] MEDS: Metoprolol Succinate 50 MG Tab.ER PO SCH (21:07)
[2019-11-01] MEDS: atorvaSTATin 10 MG Tab PO SCH (21:08)
[2019-11-01] MEDS: Melatonin 3 MG Tab PO SCH (21:09)
[2019-11-01] MEDS: Insulin Glargine,Human Rec. Analog 100 Units/ML 3 ML Pen SUBCUT SCH (21:25)
[2019-11-02] MEDS: Tamsulosin 0.4 MG Cap.ER PO SCH (08:34)
[2019-11-02] MEDS: Pantoprazole 40 MG Tab.CR PO SCH (08:34)
[2019-11-02] MEDS: Gabapentin 100 MG Cap PO SCH ×3 (08:34→21:38)
[2019-11-02] MEDS: Amoxicillin/Clavulanate K 500-125 MG Tab PO SCH ×2 (08:34→21:41)
[2019-11-02] MEDS: Multivitamins with Iron/Calcium/Folic Acid/Minerals Tab PO SCH (08:35)
[2019-11-02] MEDS: Acetaminophen 325 MG Tab PO SCH ×3 (08:35→21:38)
[2019-11-02] MEDS: Enoxaparin 30 MG/0.3 ML Syringe SUBCUT SCH (08:36)
[2019-11-02] MEDS: Metoprolol Succinate 50 MG Tab.ER PO SCH ×2 (11:05→21:41)
--- NOTE | 2019-11-02 12:29 | PCM.PN ---
- General Info Date of Service: 11/02/19 Subjective Update: No acute events overnight. Patient is more alert and interactive today. He is close to his baseline today as far as his mental status and confusion is much better. Blood pressure was on the low side but overall has been stable. Heart rate is better controlled with the increased dose of metoprolol. Edema has improved dramatically. Kidney function slowly improving with the diuresis. Functional Status: Reports: Pain Controlled, Tolerating Diet - Review of Systems General: Denies: Fever Pulmonary: Denies: Shortness of Breath Gastrointestinal: Denies: Abdominal Pain Neurological: Reports: Confusion (improving ) - Patient Data Vitals - Most Recent: Last Vital Signs Temp 35.9 C L 11/02/19 10:40 Pulse 90 11/02/19 11:05 Resp 16 11/02/19 10:40 BP 109/57 L 11/02/19 11:05 Pulse Ox 95 11/02/19 10:40 Weight - Most Recent: 93.8 kg I&O - Last 24 Hours: Intake & Output 11/01/19 11/02/19 11/02/19 22:59 06:59 14:59 Intake Total 240 200 Output Total 750 2850 Balance -510 -2650 Lab Results Last 24 Hours: Laboratory Results - last 24 hr 11/02/19 Range/Units 04:23 Sodium 140 (140-148) mmol/L Potassium 4.1 (3.6-5.2) mmol/L Chloride 104 (100-108) mmol/L Carbon Dioxide 29 (21-32) mmol/L Anion Gap 7.4 (5.0-14.0) mmol/L BUN 53 H (7-18) mg/dL Creatinine 2.3 H (0.8-1.3) mg/dL Est Cr Clr Drug Dosing 24.00 mL/min Estimated GFR (MDRD) 27 L (>60) Glucose 159 H (74-106) mg/dL Calcium 8.0 L (8.5-10.1) mg/dL Med Orders - Current: Current Medications Acetaminophen (Tylenol) 650 mg PO TID [facility] Last Admin: 11/02/19 08:35 Dose: 650 mg Acetaminophen (Tylenol) 650 mg PO Q4H PRN PRN Reason: Pain (Mild 1-3)/fever Albuterol (Proventil Neb Soln) 2.5 mg NEB Q4H PRN PRN Reason: Shortness Of Breath/wheezing Amoxicillin/Clavulanate Potassium (Augmentin 500 Mg\125 Mg) 1 tab PO Q12H [facility] Last Admin: 11/02/19 08:34 Dose: 1 tab Atorvastatin Calcium (Lipitor) 10 mg PO BEDTIME [facility] Last Admin: 11/01/19 21:08 Dose: 10 mg Enoxaparin Sodium (Lovenox) 30 mg SUBCUT DAILY [facility] Last Admin: 11/02/19 08:36 Dose: 30 mg Gabapentin (Neurontin) 100 mg PO TID [facility] Last Admin: 11/02/19 08:34 Dose: 100 mg Insulin Glargine (Lantus Solostar) 10 units SUBCUT BEDTIME [facility] Last Admin: 11/01/19 21:25 Dose: 10 units Lorazepam (Ativan) 0.5 mg IVPUSH Q4H PRN PRN Reason: Nausea/Vomiting Magnesium Hydroxide (Milk Of Magnesia) 30 ml PO Q12H PRN PRN Reason: Constipation Last Admin: 11/01/19 17:16 Dose: 30 ml Melatonin (Melatonin) 9 mg PO BEDTIME [facility] Last Admin: 11/01/19 21:09 Dose: 9 mg Metoprolol Succinate (Toprol Xl) 100 mg PO BID [facility] Last Admin: 11/02/19 11:05 Dose: 100 mg Multivitamins/Minerals (Thera M Plus) 1 tab PO DAILY [facility] Last Admin: 11/02/19 08:35 Dose: 1 tab Ondansetron HCl (Zofran Odt) 4 mg PO Q6H PRN PRN Reason: Nausea able to take PO Ondansetron HCl (Zofran) 4 mg IV Q6H PRN PRN Reason: Nausea/Vomiting Pantoprazole Sodium (Protonix) 40 mg PO ACBREAKFAST [facility] Last Admin: 11/02/19 08:34 Dose: 40 mg Senna/Docusate Sodium (Senna Plus) 1 tab PO BID PRN PRN Reason: Constipation Last Admin: 11/01/19 17:16 Dose: 1 tab Sodium Chloride (Saline Flush) 10 ml FLUSH ASDIRECTED PRN PRN Reason: Keep Vein Open Last Admin: 10/30/19 07:12 Dose: 10 ml Tamsulosin HCl (Flomax) 0.4 mg PO DAILY [facility] Last Admin: 11/02/19 08:34 Dose: 0.4 mg Discontinued Medications Hydrocodone Bitart/Acetaminophen ([place] 325-10 Mg) 1 tab PO ONETIME ONE Stop: 10/30/19 08:16 Last Admin: 10/30/19 08:19 Dose: 1 tab Bumetanide (Bumex) 2 mg IVPUSH Q12H [facility] Last Admin: 10/31/19 04:41 Dose: 2 mg Bumetanide (Bumex) 3 mg IVPUSH ONETIME ONE Stop: 10/31/19 12:01 Last Admin: 10/31/19 13:00 Dose: 3 mg Bumetanide (Bumex) 3 mg IVPUSH ONETIME ONE Stop: 11/01/19 09:01 Last Admin: 11/01/19 09:32 Dose: 3 mg Bumetanide (Bumex) 3 mg IVPUSH Q12H [facility] Last Admin: 11/01/19 20:45 Dose: 3 mg Digoxin (Lanoxin) 125 mcg PO ONETIME ONE Stop: 10/31/19 12:01 Last Admin: 10/31/19 13:01 Dose: 125 mcg Enoxaparin Sodium (Lovenox) 40 mg SUBCUT DAILY [facility] Last Admin: 10/30/19 12:30 Dose: 40 mg Furosemide (Lasix) 60 mg IVPUSH ONETIME ONE Stop: 10/30/19 06:56 Last Admin: 10/30/19 07:12 Dose: 60 mg Hydromorphone HCl (Dilaudid) 0.5 mg IVPUSH ONETIME ONE Stop: 10/30/19 07:23 Last Admin: 10/30/19 07:39 Dose: 0.5 mg Magnesium Sulfate 2 gm/ Premix 50 mls @ 25 mls/hr IV Q6H [facility] Stop: 10/31/19 16:59 Last Admin: 10/31/19 15:09 Dose: 25 mls/hr Lidocaine HCl (Xylocaine 2% Jelly) 10 ml MUCMEM ONETIME ONE Stop: 10/30/19 05:53 Last Admin: 10/30/19 05:57 Dose: 10 ml Metoprolol Tartrate (Lopressor) 50 mg PO BID [facility] Metoprolol Tartrate (Lopressor) 75 mg PO BID [facility] Last Admin: 11/01/19 09:18 Dose: 75 mg Metoprolol Tartrate (Lopressor) 5 mg IVPUSH ONETIME ONE Stop: 10/31/19 18:18 Last Admin: 10/31/19 18:37 Dose: 5 mg - Exam Quality Assessment: No: Supplemental Oxygen General: Alert, Oriented, Cooperative, No Acute Distress Lungs: Normal Respiratory Effort Cardiovascular: Regular Rate, Irregular Rhythm GI/Abdominal Exam: Soft, No Distention Extremities: No Pedal Edema, Other (mild swelling dependent areas of both hips/ buttocks (mild)) Skin: Warm, Dry Psy/Mental Status: Alert, Normal Affect Sepsis Event Note - Evaluation Sepsis Screening Result: No Definite Risk - Focused Exam Vital Signs: Vital Signs Temp Pulse Pulse Resp BP BP Pulse Ox 11/02/19 11:05 90 109/57 L 11/02/19 10:40 35.9 C L 90 16 109/57 L 95 11/02/19 08:38 92/60 11/02/19 07:00 35.6 C L 84 16 99/58 L 95 11/02/19 03:18 36.2 C 103 H 16 98/68 98 Date Exam was Performed: 11/02/19 Time Exam was Performed: 15:05 - Problem List & Annotations (1) Acute combined systolic and diastolic CHF, NYHA class 3 SNOMED Code(s): 729879498539620, 253878886, 176177646983099 Code(s): I50.41 - ACUTE COMBINED SYSTOLIC AND DIASTOLIC (CONGESTIVE) HRT FAIL Status: Acute Current Visit: Yes (2) Atrial fibrillation with rapid ventricular response SNOMED Code(s): 318077186151421 Code(s): I48.91 - UNSPECIFIED ATRIAL FIBRILLATION Status: Acute Current Visit: Yes (3) Acute renal failure superimposed on stage 3 chronic kidney disease SNOMED Code(s): 687893553 Code(s): N17.9 - ACUTE KIDNEY FAILURE, UNSPECIFIED; N18.3 - CHRONIC KIDNEY DISEASE, STAGE 3 (MODERATE) Status: Acute Current Visit: Yes Qualifiers: Acute renal failure type: unspecified Qualified Code(s): N17.9 - Acute kidney failure, unspecified; N18.3 - Chronic kidney disease, stage 3 (moderate) (4) Hyperkalemia SNOMED Code(s): 68436918 Code(s): E87.5 - HYPERKALEMIA Status: Acute Current Visit: Yes (5) Diabetes mellitus type II, controlled SNOMED Code(s): 62138944, 451409105 Code(s): E11.9 - TYPE 2 DIABETES MELLITUS WITHOUT COMPLICATIONS Status: Chronic Current Visit: Yes Qualifiers: Diabetes mellitus fci insulin use: with terminal make up operator use Diabetes mellitus complication status: with unspecified complications Qualified Code(s) : E11.8 - Type 2 diabetes mellitus with unspecified complications; Z79.4 - senior care (current) use of insulin (6) H/O aortic valve replacement SNOMED Code(s): 8968228596275, 464758823, 5206127359824 Code(s): Z95.2 - PRESENCE OF PROSTHETIC HEART VALVE Status: Chronic Current Visit: No (7) Acute cystitis without hematuria SNOMED Code(s): 49656280 Code(s): N30.00 - ACUTE CYSTITIS WITHOUT HEMATURIA Status: Acute Current Visit: Yes - Problem List Review Problem List Initiated/Reviewed/Updated: Yes - My Orders Last 24 Hours: My Active Orders 11/01/19 12:38 Discontinue Telemetry Monitoring [Cardiac Monitoring Discontinue] [RC] Click to Edit 11/01/19 21:00 Metoprolol Succinate [Toprol XL] 100 mg PO BID 11/02/19 12:27 DC Vega Catheter [Urinary Catheter Removal] [RC] Per Unit Routine 11/02/19 16:30 GLUCOSE POC LAB TO COLLECT [POC] QIDACANDBED 11/02/19 21:00 GLUCOSE POC LAB TO COLLECT [POC] QIDACANDBED 11/03/19 05:00 BASIC METABOLIC PANEL,BMP [CHEM] Timed 11/03/19 07:30 GLUCOSE POC LAB TO COLLECT [POC] QIDACANDBED 11/03/19 09:00 Furosemide [Lasix] 40 mg PO DAILY 11/03/19 11:30 GLUCOSE POC LAB TO COLLECT [POC] QIDACANDBED 11/03/19 16:30 GLUCOSE POC LAB TO COLLECT [POC] QIDACANDBED 11/03/19 21:00 GLUCOSE POC LAB TO COLLECT [POC] QIDACANDBED 11/04/19 07:30 GLUCOSE POC LAB TO COLLECT [POC] QIDACANDBED 11/04/19 11:30 GLUCOSE POC LAB TO COLLECT [POC] QIDACANDBED 11/04/19 16:30 GLUCOSE POC LAB TO COLLECT [POC] QIDACANDBED 11/04/19 21:00 GLUCOSE POC LAB TO COLLECT [POC] QIDACANDBED 11/05/19 07:30 GLUCOSE POC LAB TO COLLECT [POC] QIDACANDBED 11/05/19 11:30 GLUCOSE POC LAB TO COLLECT [POC] QIDACANDBED - Plan Plan:: ASSESSMENT AND PLAN - Acute on chronic combined systolic and diastolic congestive heart failure, NYHA III-echocardiogram was stable with mild reduction in systolic function and some diastolic dysfunction along with valvular abnormalities. Excellent response to diuresis and I think we are close to euvolemia at this time. Kidney function has been improving with the diuresis. -Hold diuresis today -Remove catheter today -Continue beta-keri -Hold HINA inhibitor and additional antihypertensives with borderline hypotension Atrial fibrillation with rapid ventricular response-rate control has improved with the increased dose of metoprolol. -Discontinue cardiac monitoring -Increased dose of metoprolol and change to long-acting Acute cystitis without hematuria-no significant symptoms and urinalysis not impressive for infection but urine culture did grow out a moderate quantity of enterococcus. Seems quite a bit better today after antibiotics were initiated yesterday. -Amoxicillin/clavulanate twice daily for total of 5 days Acute on chronic kidney disease-kidney function slowly improving. -Labs in the morning Hyperkalemia-potassium level remains normal. -Hold HINA inhibitor -Repeat in the morning Type 2 diabetes mellitus-sugars acceptable so far. -Continue Lantus but decrease dose slightly -4 times daily Accu-Cheks -consider sliding scale if sugars consistently elevated Status post aortic valve replacement-stable. Maintenance issues - - DVT prophylaxis -enoxaparin - GI prophylaxis -PPI - Nutrition -low-sodium - Vega catheter -will be removed today Disposition -I would anticipate discharge back to the [facility] after the hospital stay, possibly tomorrow if stable overnight Ramo Romano M.D.
[2019-11-02] MEDS: Bumetanide 1 MG/4 ML MDV IVPUSH SCH (13:08)
[2019-11-02] MEDS: atorvaSTATin 10 MG Tab PO SCH (21:39)
[2019-11-02] MEDS: Melatonin 3 MG Tab PO SCH (21:40)
[2019-11-02] MEDS: Insulin Glargine,Human Rec. Analog 100 Units/ML 3 ML Pen SUBCUT SCH (21:40)
[2019-11-03] MEDS: Pantoprazole 40 MG Tab.CR PO SCH (07:36)
[2019-11-03] MEDS ORDERED: Furosemide 40 MG Tab PO SCH (09:00)
[2019-11-03] MEDS: Amoxicillin/Clavulanate K 500-125 MG Tab PO SCH (09:07)
[2019-11-03] MEDS: Enoxaparin 30 MG/0.3 ML Syringe SUBCUT SCH (09:07)
[2019-11-03] MEDS: Gabapentin 100 MG Cap PO SCH (09:08)
[2019-11-03] MEDS: Multivitamins with Iron/Calcium/Folic Acid/Minerals Tab PO SCH (09:08)
[2019-11-03] MEDS: Tamsulosin 0.4 MG Cap.ER PO SCH (09:08)
[2019-11-03] MEDS: Acetaminophen 325 MG Tab PO SCH (09:08)
[2019-11-03] MEDS: Metoprolol Succinate 50 MG Tab.ER PO SCH (09:09)
--- NOTE | 2019-11-03 10:24 | PCM.DCSUM1 ---
Discharge Summary - Hospital Course Brief History: 89-year-old male with history of combined systolic and diastolic congestive heart failure, chronic atrial fibrillation, diabetes and stage III kidney disease as well as mild dementia who presented with a 20+ pound weight gain as well as increasing weakness and confusion. He was admitted for management of an exacerbation of his congestive heart failure. Diagnosis: Stroke: No - Discharge Data Discharge Date: 11/03/19 Discharge Disposition: DC/Tfer to SNF 03 Condition: Good - Referral to Home Health Primary Care Physician: PCP None - Discharge Diagnosis/Problem(s) (1) Acute combined systolic and diastolic CHF, NYHA class 3 SNOMED Code(s): 107822297404678, 893998177, 521860407703370 ICD Code: I50.41 - ACUTE COMBINED SYSTOLIC AND DIASTOLIC (CONGESTIVE) HRT FAIL Status: Acute Current Visit: Yes (2) Atrial fibrillation with rapid ventricular response SNOMED Code(s): 614373077708037 ICD Code: I48.91 - UNSPECIFIED ATRIAL FIBRILLATION Status: Acute Current Visit: Yes (3) Acute renal failure superimposed on stage 3 chronic kidney disease SNOMED Code(s): 551207933 ICD Code: N17.9 - ACUTE KIDNEY FAILURE, UNSPECIFIED; N18.3 - CHRONIC KIDNEY DISEASE, STAGE 3 (MODERATE) Status: Acute Current Visit: Yes Qualifiers: Acute renal failure type: unspecified Qualified Code(s): N17.9 - Acute kidney failure, unspecified; N18.3 - Chronic kidney disease, stage 3 (moderate) (4) Hyperkalemia SNOMED Code(s): 90765284 ICD Code: E87.5 - HYPERKALEMIA Status: Acute Current Visit: Yes (5) Diabetes mellitus type II, controlled SNOMED Code(s): 05099362, 760412481 ICD Code: E11.9 - TYPE 2 DIABETES MELLITUS WITHOUT COMPLICATIONS Status: Chronic Current Visit: Yes Qualifiers: Diabetes mellitus long term care pharmacist insulin use: with fpc use Diabetes mellitus complication status: with unspecified complications Qualified Code(s) : E11.8 - Type 2 diabetes mellitus with unspecified complications; Z79.4 - long term care pharmacist (current) use of insulin (6) H/O aortic valve replacement SNOMED Code(s): 1794101610713, 760501833, 2815672300074 ICD Code: Z95.2 - PRESENCE OF PROSTHETIC HEART VALVE Status: Chronic Current Visit: No (7) Acute cystitis without hematuria SNOMED Code(s): 56561544 ICD Code: N30.00 - ACUTE CYSTITIS WITHOUT HEMATURIA Status: Acute Current Visit: Yes - Patient Summary/Data Consults: Consultations 10/31/19 07:00 PT Evaluation and Treatment [CONS] Routine Please Evaluate and Treat. PT Reason for Consult: Strengthening This query below is only for informational purposes and is not editable. Hospital Course: Luis presented to the emergency room with a 20 pound weight gain and progressive lower extremity edema. He was also weaker than usual and confused. Work-up in the emergency room was suspicious for an exacerbation of his congestive heart failure. His creatinine had risen significantly from baseline. He received diuretics in the emergency room and was admitted for further management. His urine was not impressive for infection but we did set up a urine culture and the morning after admission it returned growing a gram- positive cocci. He did not have fevers and his white count was normal so I elected not to treat this initially. I did continue diuresis but did switch him to bumetanide after the furosemide did not produce a very impressive diuresis. During the first couple of days of the hospital stay his kidney function remained decreased but stable. His edema was improving. We also had some difficulty controlling his atrial fibrillation and his blood pressure was on the lower side so I elected to discontinue his antihypertensives and increase his dose of metoprolol. He did take 2 dose increases to get his atrial fibrillation under better control. We continued diuresis with bumetanide and had a good response. His lower extremity edema has essentially resolved. We have seen much better rate control of the atrial fibrillation with a transition to long-acting metoprolol at a bigger dose. His kidney function steadily improved over the last couple of days prior to discharge and is nearly back to baseline. Volume status seems to be appropriate at this time. To my surprise his urine culture did come back with enterococcus and a quantity between 50 and 100,000 CFU's. I did elect to treat at this point since he was confused beyond baseline and over the next couple of days we did see a fairly dramatic improvement in his mental status. He seems to be back to baseline at this time. The plan is for him to complete a 5-day course of antibiotics for the infection. His volume status is back to baseline and he has been transitioned to oral antibiotics and has remained stable. Atrial fibrillation control is acceptable. We did not restart his clonidine, amlodipine or HINA inhibitor because of low normal blood pressures. The HINA inhibitor would be the first 1 to restart if blood pressure does rise. He is stable and safe for [facility] back to the [facility] at this time. He will be receiving ongoing physical and Occupational Therapy. He should have a BMP checked next week to make sure his kidney function continues to improve and his potassium stays stable with his slightly increased dose of furosemide. - Patient Instructions Diet: Diabetic Diet Activity: As Tolerated Showering/Bathing: May Shower Notify Provider of: Fever, Increased Pain Other/Special Instructions: 1. You were in the hospital for management of acute combined systolic and diastolic congestive heart failure. Your condition has improved with diuretic therapy. We did make multiple medication changes as discussed below. -Increase your furosemide to 40 mg daily. -Stop taking amlodipine, quinapril and clonidine. 2. Recheck BMP in 1 week -follow-up acute kidney injury and recheck potassium. 3. Take Augmentin twice daily for 5 more doses. Your first dose is due tonight. This antibiotic is used to treat a urinary tract infection. 4. Your atrial fibrillation was not well controlled so we adjusted your metoprolol by changing into the long-acting formulation and increasing the dose. Please take metoprolol succinate 100 mg twice daily. 5. CODE STATUS-DNR/DNI. 6. Referral to physical and Occupational Therapy for strengthening after acute illness - Discharge Plan *PRESCRIPTION DRUG MONITORING PROGRAM REVIEWED*: Not Applicable *COPY OF PRESCRIPTION DRUG MONITORING REPORT IN PATIENT ANGELIQUE: Not Applicable Prescriptions/Med Rec: Amoxicillin/Clavulanate K [Augmentin 500-125 MG] 1 tab PO BID #5 tablet Furosemide [Lasix] 40 mg PO DAILY #30 tablet Metoprolol Succinate [Toprol XL 50mg] 100 mg PO BID #60 tab.er Home Medications: Home Meds Omeprazole [Prilosec] 20 mg PO DAILY 06/01/13 [History] atorvaSTATin [Lipitor] 10 mg PO BEDTIME 09/08/19 [History] metFORMIN HCl [Metformin HCl] 1,000 mg PO BIDAC 09/08/19 [History] Acetaminophen [Tylenol] 650 mg PO TID 10/30/19 [History] Gabapentin [Neurontin] 100 mg PO TID 10/30/19 [History] Insulin Detemir [Levemir Flextouch] 15 units SQ BEDTIME 10/30/19 [History] Multivit with Iron,Minerals [Complete Senior] 1 each PO DAILY 10/30/19 [History] Leary-3S/DHA/Epa/Fish Oil [Fish Oil Leary-3 Softgel] 1 cap PO BID 10/30/19 [ History] Potassium Chloride 20 meq PO ASDIRECTED 10/30/19 [History] Tamsulosin HCl [Flomax] 0.4 mg PO DAILY 10/30/19 [History] Amoxicillin/Clavulanate K [Augmentin 500-125 MG] 1 tab PO BID #5 tablet [Rx] Furosemide [Lasix] 40 mg PO DAILY #30 tablet 11/03/19 [Rx] Metoprolol Succinate [Toprol XL 50mg] 100 mg PO BID #60 tab.er 11/03/19 [Rx] Oxygen Therapy Mode: Room Air Patient Handouts: Urinary Tract Infection, Adult Referrals: Jesse Glez MD [Physician] - (as needed ) - Discharge Summary/Plan Comment DC Time >30 min.: Yes ([facility]) - Patient Data Vitals - Most Recent: Last Vital Signs Temp 36.3 C 11/03/19 07:36 Pulse 131 H 11/03/19 09:09 Resp 18 11/03/19 07:36 BP 107/54 L 11/03/19 09:09 Pulse Ox 96 11/03/19 07:36 Weight - Most Recent: 93.894 kg I&O - Last 24 hours: Intake & Output 11/02/19 11/03/19 11/03/19 22:59 06:59 14:59 Intake Total 420 200 320 Balance 420 200 320 Lab Results - Last 24 hrs: Laboratory Results - last 24 hr 11/03/19 Range/Units 04:18 Sodium 142 (140-148) mmol/L Potassium 4.3 (3.6-5.2) mmol/L Chloride 104 (100-108) mmol/L Carbon Dioxide 29 (21-32) mmol/L Anion Gap 9.5 (5.0-14.0) mmol/L BUN 51 H (7-18) mg/dL Creatinine 1.9 H (0.8-1.3) mg/dL Est Cr Clr Drug Dosing 29.05 mL/min Estimated GFR (MDRD) 34 L (>60) Glucose 174 H (74-106) mg/dL Calcium 8.1 L (8.5-10.1) mg/dL Med Orders - Current: Current Medications Acetaminophen (Tylenol) 650 mg PO TID [facility] Last Admin: 11/03/19 09:08 Dose: 650 mg Acetaminophen (Tylenol) 650 mg PO Q4H PRN PRN Reason: Pain (Mild 1-3)/fever Albuterol (Proventil Neb Soln) 2.5 mg NEB Q4H PRN PRN Reason: Shortness Of Breath/wheezing Amoxicillin/Clavulanate Potassium (Augmentin 500 Mg\125 Mg) 1 tab PO Q12H [facility] Last Admin: 11/03/19 09:07 Dose: 1 tab Atorvastatin Calcium (Lipitor) 10 mg PO BEDTIME [facility] Last Admin: 11/02/19 21:39 Dose: 10 mg Enoxaparin Sodium (Lovenox) 30 mg SUBCUT DAILY [facility] Last Admin: 11/03/19 09:07 Dose: 30 mg Furosemide (Lasix) 40 mg PO DAILY [facility] Last Admin: 11/03/19 09:08 Dose: 40 mg Gabapentin (Neurontin) 100 mg PO TID [facility] Last Admin: 11/03/19 09:08 Dose: 100 mg Insulin Glargine (Lantus Solostar) 10 units SUBCUT BEDTIME [facility] Last Admin: 11/02/19 21:40 Dose: 10 units Lorazepam (Ativan) 0.5 mg IVPUSH Q4H PRN PRN Reason: Nausea/Vomiting Magnesium Hydroxide (Milk Of Magnesia) 30 ml PO Q12H PRN PRN Reason: Constipation Last Admin: 11/01/19 17:16 Dose: 30 ml Melatonin (Melatonin) 9 mg PO BEDTIME [facility] Last Admin: 11/02/19 21:40 Dose: 9 mg Metoprolol Succinate (Toprol Xl) 100 mg PO BID [facility] Last Admin: 11/03/19 09:09 Dose: 100 mg Multivitamins/Minerals (Thera M Plus) 1 tab PO DAILY [facility] Last Admin: 11/03/19 09:08 Dose: 1 tab Ondansetron HCl (Zofran Odt) 4 mg PO Q6H PRN PRN Reason: Nausea able to take PO Ondansetron HCl (Zofran) 4 mg IV Q6H PRN PRN Reason: Nausea/Vomiting Pantoprazole Sodium (Protonix) 40 mg PO ACBREAKFAST [facility] Last Admin: 11/03/19 07:36 Dose: 40 mg Senna/Docusate Sodium (Senna Plus) 1 tab PO BID PRN PRN Reason: Constipation Last Admin: 11/01/19 17:16 Dose: 1 tab Sodium Chloride (Saline Flush) 10 ml FLUSH ASDIRECTED PRN PRN Reason: Keep Vein Open Last Admin: 10/30/19 07:12 Dose: 10 ml Tamsulosin HCl (Flomax) 0.4 mg PO DAILY [facility] Last Admin: 11/03/19 09:08 Dose: 0.4 mg Discontinued Medications Hydrocodone Bitart/Acetaminophen ([place] 325-10 Mg) 1 tab PO ONETIME ONE Stop: 10/30/19 08:16 Last Admin: 10/30/19 08:19 Dose: 1 tab Bumetanide (Bumex) 2 mg IVPUSH Q12H [facility] Last Admin: 10/31/19 04:41 Dose: 2 mg Bumetanide (Bumex) 3 mg IVPUSH ONETIME ONE Stop: 10/31/19 12:01 Last Admin: 10/31/19 13:00 Dose: 3 mg Bumetanide (Bumex) 3 mg IVPUSH ONETIME ONE Stop: 11/01/19 09:01 Last Admin: 11/01/19 09:32 Dose: 3 mg Bumetanide (Bumex) 3 mg IVPUSH Q12H [facility] Last Admin: 11/02/19 13:08 Dose: Not Given Digoxin (Lanoxin) 125 mcg PO ONETIME ONE Stop: 10/31/19 12:01 Last Admin: 10/31/19 13:01 Dose: 125 mcg Enoxaparin Sodium (Lovenox) 40 mg SUBCUT DAILY [facility] Last Admin: 10/30/19 12:30 Dose: 40 mg Furosemide (Lasix) 60 mg IVPUSH ONETIME ONE Stop: 10/30/19 06:56 Last Admin: 10/30/19 07:12 Dose: 60 mg Hydromorphone HCl (Dilaudid) 0.5 mg IVPUSH ONETIME ONE Stop: 10/30/19 07:23 Last Admin: 10/30/19 07:39 Dose: 0.5 mg Magnesium Sulfate 2 gm/ Premix 50 mls @ 25 mls/hr IV Q6H [facility] Stop: 10/31/19 16:59 Last Admin: 10/31/19 15:09 Dose: 25 mls/hr Lidocaine HCl (Xylocaine 2% Jelly) 10 ml MUCMEM ONETIME ONE Stop: 10/30/19 05:53 Last Admin: 10/30/19 05:57 Dose: 10 ml Metoprolol Tartrate (Lopressor) 50 mg PO BID [facility] Metoprolol Tartrate (Lopressor) 75 mg PO BID [facility] Last Admin: 11/01/19 09:18 Dose: 75 mg Metoprolol Tartrate (Lopressor) 5 mg IVPUSH ONETIME ONE Stop: 10/31/19 18:18 Last Admin: 10/31/19 18:37 Dose: 5 mg - Exam Quality Assessment: Denies: Supplemental Oxygen General: Reports: Alert, Cooperative, No Acute Distress Lungs: Reports: Clear to Auscultation, Normal Respiratory Effort Cardiovascular: Reports: Regular Rate, Irregular Rhythm GI/Abdominal Exam: Soft, No Distention Extremities: No Pedal Edema Psy/Mental Status: Reports: Alert, Normal Affect
[2019-11-03 12:24] VITALS: BP 105/72; PULSE 88
== END 2019-11-03 13:30 | DRG 291 ==
LOC: JP.ED 05:07 → JP.MS 10:45 → UNDOADMIN 10:45 → JP.MS 11:10 → UNDODISIN 11-03 13:30
PROVIDERS: ADMIT Internal Medicine; ATTEND Internal Medicine
DX: I13.0 Hypertensive heart and chronic kidney disease with heart failure and stage 1 through stage 4 chronic kidney disease, or unspecified chronic kidney disease (principal); I50.43 Acute on chronic combined systolic (congestive) and diastolic (congestive) heart failure; N17.9 Acute kidney failure, unspecified; I48.20 Chronic atrial fibrillation, unspecified; N30.00 Acute cystitis without hematuria; Z66 Do not resuscitate; N18.3 Chronic kidney disease, stage 3 (moderate); E87.5 Hyperkalemia; E11.22 Type 2 diabetes mellitus with diabetic chronic kidney disease; B95.2 Enterococcus as the cause of diseases classified elsewhere; E87.70 Fluid overload, unspecified; N28.9 Disorder of kidney and ureter, unspecified; D64.9 Anemia, unspecified; H91.90 Unspecified hearing loss, unspecified ear; K21.9 Gastro-esophageal reflux disease without esophagitis; M19.90 Unspecified osteoarthritis, unspecified site; I10 Essential (primary) hypertension; Z85.828 Personal history of other malignant neoplasm of skin; Z86.010 Personal history of colon polyps; Z91.030 Bee allergy status; E11.9 Type 2 diabetes mellitus without complications; Z95.2 Presence of prosthetic heart valve; Z96.659 Presence of unspecified artificial knee joint; Z91.09 Other allergy status, other than to drugs and biological substances; Z79.4 Long term (current) use of insulin; Z79.899 Other long term (current) drug therapy
CPT/HCPCS: 36415; 51702; 71045 ×2; 80053; 81001; 83880; 85025; 87086; 87088; 87186; 93005; 93010; 96374; 96375; 99284; 99285; A9270; J1170; J1940; 80048; 82962; 83735; 85027; 93306; 97110-GP; 97162-GP; J1650; J1815-GY; J3475; J3490